=== PATIENT | female | born 1955 | race Caucasian/White ===

== ENCOUNTER 2018-04-26 19:53 | Observation (INO) ==
--- NOTE | 2018-04-26 23:40 | ED ---
HPI General Chief complaint: Skin/Abscess/Foreign Body Stated complaint: leg infections Time Seen by Provider: 04/26/18 23:31 Source: patient Mode of arrival: ambulatory Limitations: no limitations History of Present Illness HPI narrative: 62-year-old female patient presents to the ER today because she has had several months history poorly healing wounds on the legs, also has them on her body. She states that she stays in a motel room and she noticed roaches around. She states that they just have not been healing, and her wounds have been getting worse. She denies any fevers or any other issues. She is not sure how the wound starts although she has bumped her arms in some spots. Related Data Home Medications Medication Instructions Recorded Confirmed No Known Home Medications 04/26/18 04/26/18 Allergies Allergy/AdvReac Type Severity Reaction Status Date / Time No Known Allergies Allergy Verified 04/26/18 23:23 Review of Systems ROS: all other systems reviewed are negative PMFSH History History Provided By: Patient Medical History Medical History Patient denies medical problems (Acute) Surgical History Surgical History No history of previous surgery (Acute) Social History Social History Substance History: No History of Abuse Second Hand Smoke Exposure: Yes Smoking Status: Current every day smoker Tobacco Type: Cigarettes How Often Do You Have a Drink Containing Alcohol: Never Recent Travel in [facility] [[email or web address] within the Last 8 Weeks: No Recent Out of Country Travel within the Last 8 Weeks: No Exam Narrative Exam Narrative: GENERAL: Well-nourished, well-developed elderly white female patient in mild distress. Awake and oriented 3. SKIN: Focused skin assessment warm/dry. HEAD: Normocephalic. EYES: No scleral icterus. No injection or drainage. NECK: Supple, trachea midline. No JVD or lymphadenopathy. CARDIOVASCULAR: Regular rate and rhythm without murmurs, gallops, or rubs. RESPIRATORY: Breath sounds equal bilaterally. No accessory muscle use. GASTROINTESTINAL: Abdomen soft, non-tender, nondistended. EXTREMITIES: No clubbing, cyanosis. She has bilateral leg edema worse on the right than the left, erythema up to the upper calf area, with several small and large ulcers that are coalescing, draining whitish pus, tender to palpation. MUSCULOSKELETAL: No cyanosis, or edema. BACK: Nontender without obvious deformity. No CVA tenderness. Course Initial Documented Vital Signs Temperature 98.3 F 04/26/18 21:02 Pulse Rate 107 H 04/26/18 21:02 Respiratory Rate 16 04/26/18 21:02 Blood Pressure 147/65 H 04/26/18 21:02 Pulse Oximetry 98 04/26/18 21:02 Last Documented Vital Signs Temperature 98.3 F 04/26/18 21:02 Pulse Rate 92 H 04/26/18 23:53 Respiratory Rate 20 04/26/18 23:53 Blood Pressure 137/62 04/26/18 23:53 Pulse Oximetry 100 04/26/18 23:53 Medical Decision Making MDM Narrative Medical decision making narrative: Patient appears to have bilateral cellulitis , nonhealing ulcers, and IV antibiotics were initiated after cultures were drawn. I suspect that she will need further follow-up for this wounds, and wound care will need to be given as well. She appears disheveled, and there is concern here without a primary care doctor that she is not going to do well as an outpatient. Case has been discussed with Dr. Monge who agrees to admit her as an observation with plans with the patient on p.o. antibiotics and follow -up care. Medical Screen Exam Complete: Yes Emergency Medical Condition: Yes Differential Diagnosis Differential Diagnosis: Cellulitis versus abscess versus sepsis Lab Data Lab results reviewed: Yes I reviewed the patient's lab results. Result diagrams: 04/26/18 23:50 04/26/18 23:50 Lab Results 04/26/18 04/26/18 04/26/18 Range/Units 23:50 23:50 23:50 WBC 10.4 (4.0-11.0) th/mm3 RBC 4.68 (4.00-5.30) mil/mm3 Hgb 11.9 (11.6-15.3) gm/dL Hct 36.6 (35.0-46.0) % MCV 78.2 L (80.0-100.0) fL MCH 25.3 L (27.0-34.0) pg MCHC 32.4 (32.0-36.0) % RDW 16.8 (11.6-17.2) % Plt Count 543 H (150-450) th/mm3 MPV 6.4 L (7.0-11.0) fL Neut % (Auto) 68.7 (16.0-70.0) % Lymph % (Auto) 22.6 (9.0-44.0) % [place] % (Auto) 6.9 (0.0-8.0) % Eos % (Auto) 1.2 (0.0-4.0) % Baso % (Auto) 0.6 (0.0-2.0) % Neut # (Auto) 7.2 (1.8-7.7) th/mm3 Lymph # (Auto) 2.4 (1.0-4.8) th/mm3 [place] # (Auto) 0.7 (0.0-0.9) th/mm3 Eos # (Auto) 0.1 (0.0-0.4) th/mm3 Baso # (Auto) 0.1 (0.0-0.2) th/mm3 WBC Differential . Differential Comment Auto diff final Sodium 141 (136-145) meq/L Potassium 3.8 (3.5-5.1) meq/L Chloride 106 (98-107) meq/L Carbon Dioxide 26.3 (21.0-32.0) meq/L Anion Gap 9 (5-15) meq/L BUN 7 (7-18) mg/dL Creatinine 0.68 (0.50-1.00) mg/dL Estimated GFR 88 L (>89) mL/min Random Glucose 102 (74-106) mg/dL Lactic Acid 1.2 (0.4-2.0) mmol/L Calcium 8.4 L (8.5-10.1) mg/dL Discharge Plan Discharge Details Anticipated Discharge Date: 04/27/18 Physicians Team ED Provider: Tanya Choudhury Primary Care Provider: Primary Care Maggi Zepeda Rxs /Orders / Referrals /Forms Prescriptions: No Action No Known Home Medications RF: 0 Discharge Interventions Interventions: Vital Signs Last Done: 04/26/18 23:53 Status ED Status: With Doctor
[2018-04-27 00:03] LABS: Baso # (Auto) 0.1 th/mm3 (0.0-0.2); Baso % (Auto) 0.6 % (0.0-2.0); Eos # (Auto) 0.1 th/mm3 (0.0-0.4); Eos % (Auto) 1.2 % (0.0-4.0); Hematocrit 36.6 % (35.0-46.0); Hemoglobin 11.9 gm/dL (11.6-15.3); Lymph # (Auto) 2.4 th/mm3 (1.0-4.8); Lymph % (Auto) 22.6 % (9.0-44.0); Mean Corpuscular HGB Conc 32.4 % (32.0-36.0); Mean Corpuscular Hemoglobin 25.3 pg (27.0-34.0); Mean Corpuscular Volume 78.2 fL (80.0-100.0); Mean Platelet Volume 6.4 fL (7.0-11.0); Mono # (Auto) 0.7 th/mm3 (0.0-0.9); Mono % (Auto) 6.9 % (0.0-8.0); Neut # (Auto) 7.2 th/mm3 (1.8-7.7); Neut % (Auto) 68.7 % (16.0-70.0); Platelet Count 543 th/mm3 (150-450); Red Blood Count 4.68 mil/mm3 (4.00-5.30); Red Cell Distribution Width 16.8 % (11.6-17.2); White Blood Count 10.4 th/mm3 (4.0-11.0)
[2018-04-27 00:20] LABS: Calcium 8.4 mg/dL (8.5-10.1); Carbon Dioxide 26.3 meq/L (21.0-32.0); Potassium 3.8 meq/L (3.5-5.1)
[2018-04-27] MEDS ORDERED: Piperacil/Tazo 3.375 GM Premix 50 ML IV.SIG ONE (00:27)
[2018-04-27] MEDS ORDERED: Acetaminophen 325 MG Tablet PO PRN ×2 (01:57→12:26)
[2018-04-27] MEDS ORDERED: Bisacodyl 10 MG Supp RECTAL PRN (01:57)
[2018-04-27] MEDS ORDERED: Heparin - SQ 10,000 UNITS/ML Vial SQ SCH (02:00)
--- NOTE | 2018-04-27 02:46 | P.HP ---
History of Present Illness [facility]: [facility] Primary Care Physician: No Primary Care Physician History of Present Illness: 62-year-old female with no significant past medical history presents to the emergency department for evaluation of bilateral lower extremity wounds. The patient reports that she has had worsening sores on her lower extremities for several weeks. She states that initially she had what she thought was a spider bite that she then scratched and since has developed multiple other sores on both legs. They are not draining. She denies any fever/chills. She reports the sores are itchy and cannot prevent herself from scratching. The patient denies any chest pain or shortness of breath. No abdominal pain. No nausea/ vomiting/diarrhea. No lateralizing signs/symptoms. Of note, the patient has not been to a physician in years. She reports that she currently just moved out of a temporary stay hotel. Review of Systems All other systems reviewed negative except as stated [facility] - History History Provided By: Patient - Medical History Medical History: Medical History (Last Reviewed 04/26/18 @ 23:37 by Tanya Choudhury MD) Patient denies medical problems - Surgical History Surgical History: Surgical History (Last Reviewed 04/26/18 @ 23:37 by Tanya Choudhury MD) No history of previous surgery - Family History Family History: Family History (Last Updated 04/27/18 @ 02:38 by Dionne Monge MD) Other Family history normal - Tobacco History Second Hand Smoke Exposure: Yes Tobacco Use In Past 30 Days: Yes Smoking Status: Current every day smoker Tobacco Type: Cigarettes - Alcohol History How Often Do You Have a Drink Containing Alcohol: Never - Substance Use History Substance History: No History of Abuse - Travel History Recent Travel in the [place] Within the Last 8 Weeks: No Recent Travel Out of the Country Within the Last 8 Weeks: No - Immunization History Tetanus Immunization: >5 Years Hx Influenza Vaccine This Season: No Medications and Allergies Active Medications: Active Medications Acetaminophen (Tylenol) 650 mg PO Q4H PRN PRN Reason: Temp > 100.4 Al Hydroxide/Mg Hydroxide (Milk Of Magnesia Liq) 30 ml PO Q12H PRN PRN Reason: Mild Constipation Bisacodyl (Dulcolax Supp) 10 mg RECTAL DAILY PRN PRN Reason: SEVERE CONSITIPATION Heparin Sodium (Porcine) (Heparin Inj) 5,[address] [facility] Clindamycin/Sodium Chloride (Cleocin 900 Mg/Ns Premix) 900 mg in 50 mls @ 100 mls/hr IV.SIG Q8H [facility] Lactulose (Lactulose Liq) 30 ml PO DAILY PRN PRN Reason: SEVERE CONSITIPATION Ondansetron HCl (Zofran Inj) 4 mg IV.PUSH Q6H PRN PRN Reason: NAUSEA OR VOMITING Senna/Docusate Sodium (Lily-Colace) [address] [facility] Sennosides (Senokot) 17.2 mg PO Q12H PRN PRN Reason: Moderate Constipation Allergies Allergy/AdvReac Type Severity Reaction Status Date / Time No Known Allergies Allergy Verified 04/26/18 23:23 Home Medications Medication Instructions Recorded Confirmed Type No Known Home Medications 04/26/18 04/26/18 History Exam Vital signs: Vital Signs 04/26/18 21:02 04/26/18 23:53 Temperature 98.3 F Pulse Rate 107 H 92 H Respiratory Rate 16 20 Blood Pressure 147/65 H 137/62 Pulse Oximetry 98 100 Intake & Output 04/26/18 04/26/18 04/27/18 06:59 18:59 06:59 Intake Total 50 / 50 Balance 50 / 50 Weight 86 kg Intake: IV 50 / 50 Zosyn 3.375 GM Premix 50 ML @ 50 / 50 100 mls/hr IV.SIG ONCE ONE Rx#: [id number] Narrative: Gen.: No acute distress Head: Normocephalic. Atraumatic. EENT: Pupils equal round and reactive to light. Nose without drainage. Airway intact. Throat without injection. Cardiovascular: Regular rate and rhythm. No murmurs, rubs or gallops. Respiratory: Lungs clear to auscultation bilaterally. No wheezes or rhonchi. Abdomen: Soft, nontender, nondistended. No peritoneal signs. Musculoskeletal: No gross deformities. No edema. Skin: Multiple superficial wounds without drainage on the bilateral lower extremities. Surrounding erythema. No induration or fluctuance. Neuro: Sensory and motor grossly intact. Cranial nerves II through XII grossly intact. Results - Labs CBC & Chem 7: 04/26/18 23:50 04/26/18 23:50 Labs: Laboratory Results - last 24 hr 04/26/18 04/26/18 04/26/18 23:50 23:50 23:50 WBC 10.4 RBC 4.68 Hgb 11.9 Hct 36.6 MCV 78.2 L MCH 25.3 L MCHC 32.4 RDW 16.8 Plt Count 543 H MPV 6.4 L Neut % (Auto) 68.7 Lymph % (Auto) 22.6 [place] % (Auto) 6.9 Eos % (Auto) 1.2 Baso % (Auto) 0.6 Neut # (Auto) 7.2 Lymph # (Auto) 2.4 [place] # (Auto) 0.7 Eos # (Auto) 0.1 Baso # (Auto) 0.1 WBC Differential . Differential Comment Auto diff final Sodium 141 Potassium 3.8 Chloride 106 Carbon Dioxide 26.3 Anion Gap 9 BUN 7 Creatinine 0.68 Estimated GFR 88 L Random Glucose 102 Lactic Acid 1.2 Calcium 8.4 L Caprini VTE Risk Assessment Caprini VTE Risk Assessment: Moderate/High Risk (score >= 2) Caprini Risk Assessment Model: Point Value = 1 Point Value = 2 Point Value = 3 Point Value = 5 Age 41-60 Minor surgery BMI > 25 kg/m2 Swollen legs Varicose veins or History of unexplained or recurrent spontaneous Oral contraceptives or hormone replacement Sepsis (< 1 month) Serious lung disease, including pneumonia (< 1 month) Abnormal pulmonary function Acute myocardial infarction Congestive heart failure (< 1 month) History of inflammatory bowel disease Medical patient at bed rest Age 61-74 Arthroscopic surgery Major open surgery (> 45 min) Laparoscopic surgery (> 45 min) Malignancy Confined to bed (> 72 hours) Immobilizing plaster cast Central venous access Age >= 75 History of VTE Family history of VTE Factor V Leiden Prothrombin [id number] Lupus anticoagulant Anticardiolipin antibodies Elevated serum homocysteine Heparin-induced thrombocytopenia Other congenital or acquired thrombophilia Stroke (< 1 month) Elective arthroplasty Hip, pelvis, or leg fracture Acute spinal cord injury (< 1 month) Prophylaxis Regimen: Total Risk Factor Score Risk Level Prophylaxis Regimen 0-1 Low Early ambulation 2 Moderate Order ONE of the following: *Sequential Compression Device (SCD) *Heparin 5000 units SQ BID 3-4 Higher Order ONE of the following medications: *Heparin 5000 units SQ TID *Enoxaparin/Lovenox 40 mg SQ daily (WT < 150 kg, CrCl > 30 mL/min) *Enoxaparin/Lovenox 30 mg SQ daily (WT < 150 kg, CrCl > 10-29 mL/min) *Enoxaparin/Lovenox 30 mg SQ BID (WT < 150 kg, CrCl > 30 mL/min) AND/OR *Sequential Compression Device (SCD) 5 or more Highest Order ONE of the following medications: *Heparin 5000 units SQ TID (Preferred with Epidurals) *Enoxaparin/Lovenox 40 mg SQ daily (WT < 150 kg, CrCl > 30 mL/min) *Enoxaparin/Lovenox 30 mg SQ daily (WT < 150 kg, CrCl > 10-29 mL/min) *Enoxaparin/Lovenox 30 mg SQ BID (WT < 150 kg, CrCl > 30 mL/min) AND *Sequential Compression Device (SCD) Assessment and Plan - Plan Assessment/plan: 1. Bilateral lower extremity wounds Clindamycin Wound care consulted, appreciate assistance Anticipate discharge on oral antibiotics later today FEN Regular diet Electrolytes: Monitor and replete as needed Heparin
[2018-04-27] MEDS: Clindamycin 900 mg/NS Premix 900 MG/50 ML PIGGYBACK IV.SIG SCH ×3 (02:53→18:50)
[2018-04-27] MEDS: Heparin - SQ 10,000 UNITS/ML Vial SQ SCH ×3 (06:42→21:15)
[2018-04-27] MEDS: Senna/Docusate Sodium 8.6/50 MG Tablet PO SCH ×2 (10:11→21:15)
--- NOTE | 2018-04-27 10:32 | P.PNIM ---
Subjective Interval history: Patient complains of mild pain of both of her shins. Physical Exam Vital signs: Vital Signs 04/26/18 21:02 04/26/18 23:53 04/27/18 04:25 Temperature 98.3 F Pulse Rate 107 H 92 H 88 Respiratory Rate 16 20 16 Blood Pressure 147/65 H 137/62 137/63 Pulse Oximetry 98 100 98 04/27/18 07:51 Temperature 97.6 F Pulse Rate 76 Respiratory Rate 16 Blood Pressure 110/53 L Pulse Oximetry 96 Intake & Output 04/26/18 04/27/18 04/27/18 18:59 06:59 18:59 Intake Total 100 / 100 240 / 240 Balance 100 / 100 240 / 240 Weight 86 kg 86 kg Intake: IV 100 / 100 Cleocin 900 mg/NS Premix 900 mg 50 / 50 In 50 ml @ 100 mls/hr IV.SIG Q8H [facility] Rx#:[id number] Zosyn 3.375 GM Premix 50 ML @ 50 / 50 100 mls/hr IV.SIG ONCE ONE Rx#: [id number] Oral 240 / 240 Other: Date of Last Bowel Movement 04/27/18 Weight On Admission 86 kg Narrative: General patient in no acute distress HEENT extraocular movements are intact, poor dentition Cardiovascular S1-S2 audible, RRR, no murmurs rubs or gallops Respiratory clear to auscultation bilaterally Abdomen soft, nontender, nondistended, normal bowel sounds Extremities bilateral lower extremities from the ankles to the mid [place] wrapped in gauze. Multiple open wounds noted on bilateral shins as well as bilateral forearms and left elbow. No drainage noted from the wounds. Neuro cranial nerves II through XII intact Results - Labs CBC & Chem 7: 04/26/18 23:50 04/26/18 23:50 Laboratory Results - last 24 hr 04/26/18 04/26/18 04/26/18 23:50 23:50 23:50 WBC 10.4 RBC 4.68 Hgb 11.9 Hct 36.6 MCV 78.2 L MCH 25.3 L MCHC 32.4 RDW 16.8 Plt Count 543 H MPV 6.4 L Neut % (Auto) 68.7 Lymph % (Auto) 22.6 [place] % (Auto) 6.9 Eos % (Auto) 1.2 Baso % (Auto) 0.6 Neut # (Auto) 7.2 Lymph # (Auto) 2.4 [place] # (Auto) 0.7 Eos # (Auto) 0.1 Baso # (Auto) 0.1 WBC Differential . Differential Comment Auto diff final Sodium 141 Potassium 3.8 Chloride 106 Carbon Dioxide 26.3 Anion Gap 9 BUN 7 Creatinine 0.68 Estimated GFR 88 L Random Glucose 102 Lactic Acid 1.2 Calcium 8.4 L Assessment and Plan - Plan This patient is a 62-year-old female with no previous known medical history. She is currently homeless and living in motels. She has had chronic wounds of bilateral lower extremities from the ankles up up to the shins that has been ongoing for the past few months. She states that she believes she had a spider bite on both of her lower extremities and ended up scratching them which became infected. 1. Cellulitis of bilateral lower extremities The patient has erythema pain and swelling of bilateral lower extremities from the ankles up to the shins. She is currently on IV fluids and IV antibiotics. She does have complaints of pain of bilateral lower extremities, will be initiated for pain control. She will will require IV antibiotics and will be reassessed tomorrow.
[2018-04-28] MEDS: Clindamycin 900 mg/NS Premix 900 MG/50 ML PIGGYBACK IV.SIG SCH ×2 (02:40→15:35)
[2018-04-28] MEDS: Heparin - SQ 10,000 UNITS/ML Vial SQ SCH ×2 (06:00→15:36)
[2018-04-28 07:23] LABS: Baso # (Auto) 0.1 th/mm3 (0.0-0.2); Baso % (Auto) 0.7 % (0.0-2.0); Eos # (Auto) 0.2 th/mm3 (0.0-0.4); Eos % (Auto) 2.9 % (0.0-4.0); Hematocrit 34.3 % (35.0-46.0); Hemoglobin 11.1 gm/dL (11.6-15.3); Lymph # (Auto) 2.3 th/mm3 (1.0-4.8); Lymph % (Auto) 30.4 % (9.0-44.0); Mean Corpuscular HGB Conc 32.4 % (32.0-36.0); Mean Corpuscular Hemoglobin 25.2 pg (27.0-34.0); Mean Corpuscular Volume 77.6 fL (80.0-100.0); Mean Platelet Volume 6.6 fL (7.0-11.0); Mono # (Auto) 0.7 th/mm3 (0.0-0.9); Mono % (Auto) 8.7 % (0.0-8.0); Neut # (Auto) 4.4 th/mm3 (1.8-7.7); Neut % (Auto) 57.3 % (16.0-70.0); Platelet Count 493 th/mm3 (150-450); Red Blood Count 4.42 mil/mm3 (4.00-5.30); Red Cell Distribution Width 16.8 % (11.6-17.2); White Blood Count 7.7 th/mm3 (4.0-11.0)
[2018-04-28 07:58] LABS: Anion Gap 7 meq/L (5-15); Blood Urea Nitrogen 8 mg/dL (7-18); Calcium 8.6 mg/dL (8.5-10.1); Carbon Dioxide 28.3 meq/L (21.0-32.0); Chloride 108 meq/L (98-107); Glomerular Filtration Rate Greater Than 89 mL/min (>89); Glucose,Random 93 mg/dL (74-106); Potassium 4.4 meq/L (3.5-5.1); Sodium 143 meq/L (136-145)
[2018-04-28] MEDS: Senna/Docusate Sodium 8.6/50 MG Tablet PO SCH (07:59)
--- NOTE | 2018-04-28 11:10 | P.PNIM ---
Subjective Interval history: Patient does not have any current complaints. Physical Exam Vital signs: Vital Signs 04/27/18 12:24 04/27/18 15:21 04/27/18 20:00 Temperature 98.2 F 98.3 F 98.4 F Pulse Rate 83 94 H 95 H Respiratory Rate 16 18 17 Blood Pressure 135/69 121/54 L 123/72 Pulse Oximetry 100 96 97 04/27/18 23:23 04/28/18 00:00 04/28/18 04:00 Temperature 98.4 F 98.5 F 98.1 F Pulse Rate 80 95 H 80 Respiratory Rate 16 19 19 Blood Pressure 123/72 109/53 L 129/73 Pulse Oximetry 97 97 04/28/18 07:43 Temperature 97.5 F L Pulse Rate 82 Respiratory Rate 18 Blood Pressure 128/67 Pulse Oximetry 100 Intake & Output 04/27/18 04/28/18 04/28/18 18:59 06:59 18:59 Intake Total 290 / 290 230 / 230 Output Total Balance 290 / 290 229 / 229 Weight 86 kg 90.718 kg Intake: IV 50 / 50 100 / 100 Cleocin 900 mg/NS Premix 900 mg 50 / 50 100 / 100 In 50 ml @ 100 mls/hr IV.SIG Q8H [facility] Rx#:[id number] Oral 240 / 240 130 / 130 Output: Urine Other: Date of Last Bowel Movement 04/27/18 Weight On Admission 86 kg Narrative: General patient in no acute distress HEENT extraocular movements are intact, clear oropharyngeal mucosa, no JVD Cardiovascular S1-S2 audible, RRR, no murmurs rubs or gallops Respiratory clear to auscultation bilaterally Abdomen soft, nontender, nondistended, normal bowel sounds Extremities multiple wounds and ulcerations of bilateral lower from the ankles up to the shins. Mild soaked through on the bandages. 2+ distal pulses of the bilateral lower extremities Neuro cranial nerves II through XII intact Results - Labs CBC & Chem 7: 04/28/18 06:55 04/28/18 06:55 Laboratory Results - last 24 hr 04/28/18 04/28/18 06:55 06:55 WBC 7.7 RBC 4.42 Hgb 11.1 L Hct 34.3 L MCV 77.6 L MCH 25.2 L MCHC 32.4 RDW 16.8 Plt Count 493 H MPV 6.6 L Neut % (Auto) 57.3 Lymph % (Auto) 30.4 [place] % (Auto) 8.7 H Eos % (Auto) 2.9 Baso % (Auto) 0.7 Neut # (Auto) 4.4 Lymph # (Auto) 2.3 [place] # (Auto) 0.7 Eos # (Auto) 0.2 Baso # (Auto) 0.1 WBC Differential . Differential Comment Auto diff final Sodium 143 Potassium 4.4 Chloride 108 H Carbon Dioxide 28.3 Anion Gap 7 BUN 8 Creatinine 0.61 Estimated GFR Greater than 89 Random Glucose 93 Calcium 8.6 Microbiology 04/26/18 23:45 Blood - Peripheral Aerobic Blood Culture - Preliminary No growth in 2 days 04/26/18 23:45 Blood - Peripheral Anaerobic Blood Culture - Preliminary No growth in 2 days 04/26/18 23:50 Blood - Peripheral Aerobic Blood Culture - Preliminary No growth in 2 days 04/26/18 23:50 Blood - Peripheral Anaerobic Blood Culture - Preliminary No growth in 2 days Assessment and Plan - Plan This patient is a 62-year-old female with no previous known medical history. [facility] She has had chronic wounds of bilateral lower extremities from the ankles up up to the shins that has been ongoing for the past few months. She states that she believes she had a spider bite on both of her lower extremities and ended up scratching them which became infected. 1. Cellulitis of bilateral lower extremities The patient initially presented with pain erythema and swelling of bilateral lower extremities. She has a multiple wounds of bilateral lower extremities from the ankles up to the shins with drainage of the wounds. She also has wounds of bilateral upper extremities elbows as per the patient she does not use any IV drugs. She has received 2 days of IV antibiotics while in the hospital. She will be discharged on 5 more days of p.o. clindamycin. She was advised to follow-up with a primary care physician within 1 week.
--- NOTE | 2018-04-28 15:34 | P.PNWCN ---
Wound Care Nurse Consult Description: Wound consult ordered by Tammi MCMAHAN for wound management. Communicated with: Melina KEVIN, Recommendation: 1. Cleanse bilateral lower extremities with warm water and Hibiclens rinse pat dry. 2. Apply Maxorb ll cut to fit to open wounds.Cover with ABDs secure with rolled gauze/KENIA wrap. 3. Change dressings every 3 days or as needed for dislodgement/exudate management.sign and date all dressings. 4. Follow up with out patient wound center. Additional information: Patient was seen today by filing writer , Melody Harris for wound management of bilateral lower extremities.Radio Time Sales Supervisor requested that Melina RN accompany filing writer into patient room for assistance.Melina stated she didn't have time.[employer] Time Sales Supervisor had reached out to coworker for assistance.Patient alert and oriented sitting up win bed with very soiled dressings on bilateral lower extremities .[employer] Time Sales Supervisor removed dressings with some difficulty.Lower extremities found to be covered in exudate and dirt.[employer] Time Sales Supervisor assisted patient with Hibiclens bed bath prior to wound assessment.Patient noted to have diffuse partial thickness wounds to bilateral lower extremities that present like sores being "picked at" patient states she does itch and pick sores at night.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 Distal right lower extremity [place] area measures 2.5cm x3.0cm x 0.3cm wound base is 100% moist red non granular tissue.Wound edges are well defined sloped with wound base. scant serosanguineous exudate with out odor.LLE posterior gaiter area has a ~8.0cm x~ 6.0cm x dry exudate.Wound edges are well defined irregular in shape.serous exudate noted with cleansing.All wounds cleansed with normal saline pat dry Maxorb ll cut to fit wound bases applied and covered with ABD dressings secured with rolled gauze /KENIA wrap care package left with patient .No further questions or concerns upon writers departure. Wound/Pressure Injury - Wound Left Lower Leg Wound Assessment: Ongoing Wound Type: Contusion Is This a Chronic Wound: No Requested from Provider a Wound Care Consult: No (LINDA Bucio seen 04/28) Wound Bed Appearance: Red Surrounding Tissue Appearance: Bright Red Surrounding Tissue Temperature: Warm Drainage Description: Serous Drainage Amount: Scant Drainage Odor: No Odor Dressing Status: Changed Cleansing Solution: Saline Wound Packing Type: Alginate Primary Dressing: Absorbant Pad Cover Dressing: Non-Adherent Gauze Pads Tape Type: Paper Wound Dressing Change Date: 04/28/18 Right Lower Leg Wound Assessment: Ongoing Wound Type: Contusion Is This a Chronic Wound: No Requested from Provider a Wound Care Consult: No (Adrianna KEVIN,[facility] ) Wound Bed Appearance: Red Surrounding Tissue Appearance: Bright Red Surrounding Tissue Temperature: Warm Drainage Description: Serosanguinous Drainage Amount: Minimal Drainage Odor: No Odor Dressing Status: Changed Cleansing Solution: Saline Wound Packing Type: Alginate Primary Dressing: Absorbant Pad Cover Dressing: Gauze Roll/Wrap Tape Type: Paper Wound Dressing Change Date: 04/28/18
== END 2018-04-28 17:45 | disposition home or self-care (01) ==
LOC: NEDA 19:53 → NEPE 19:53 → NEDH 04-27 06:43 → NEPHCDU 04-27 08:18
PROVIDERS: ADMIT Hospitalist; ATTEND Hospitalist

== ENCOUNTER 2018-06-01 13:56 | Inpatient (IN) ==
[2018-06-01 19:03] LABS: Baso % (Auto) 0.3 % (0.0-2.0); Eos # (Auto) 0.1 th/mm3 (0.0-0.4); Eos % (Auto) 0.7 % (0.0-4.0); Hematocrit 32.5 % (35.0-46.0); Hemoglobin 10.5 gm/dL (11.6-15.3); Lymph # (Auto) 2.5 th/mm3 (1.0-4.8); Lymph % (Auto) 17.6 % (9.0-44.0); Mean Corpuscular HGB Conc 32.2 % (32.0-36.0); Mean Corpuscular Hemoglobin 24.7 pg (27.0-34.0); Mean Corpuscular Volume 76.7 fL (80.0-100.0); Mean Platelet Volume 6.9 fL (7.0-11.0); Mono % (Auto) 6.8 % (0.0-8.0); Neut # (Auto) 10.7 th/mm3 (1.8-7.7); Neut % (Auto) 74.6 % (16.0-70.0); Platelet Count 538 th/mm3 (150-450); Red Blood Count 4.24 mil/mm3 (4.00-5.30); Red Cell Distribution Width 18.5 % (11.6-17.2); White Blood Count 14.4 th/mm3 (4.0-11.0)
[2018-06-01] MEDS ORDERED: Clindamycin 900 mg/NS Premix 900 MG/50 ML PIGGYBACK IV.SIG ONE (19:05)
--- NOTE | 2018-06-01 19:05 | ED ---
HPI General Chief complaint: Skin/Abscess/Foreign Body Stated complaint: Skin Sores Time Seen by Provider: 06/01/18 17:51 Source: patient Mode of arrival: ambulatory Limitations: no limitations History of Present Illness HPI narrative: 63-year-old female presents to the emergency department for evaluation of wounds to the bilateral lower extremities. She says she has "new bites" to the left lower extremity, lateral calf that is been present for 3-4 days. She states that her right leg seems swollen as well. She states that she is not homeless however, states she states in different hotels throughout the week. She says that she was discharged from [facility] last month with antibiotics and states that she was compliant with this medication. Patient states she has been changing her bandages daily however, does not appear so on exam today. She denies fever, chills, nausea, vomiting. Patient states she has had diarrhea, 2-3 nonbloody episodes for 1 week. She denies chronic medical issues or medication use. She denies use of alcohol or illicit drugs. She does smoke tobacco. Related Data Home Medications Medication Instructions Recorded Confirmed No Known Home Medications 04/26/18 06/01/18 Allergies Allergy/AdvReac Type Severity Reaction Status Date / Time No Known Allergies Allergy Verified 06/01/18 18:42 Review of Systems ROS: all other systems reviewed are negative [facility] Medical History Medical History Patient denies medical problems (Acute) Social History Social History Substance History: No History of Abuse Second Hand Smoke Exposure: Yes Smoking Status: Current every day smoker Tobacco Type: Cigarettes How Often Do You Have a Drink Containing Alcohol: Never Recent Travel in [facility] within the Last 8 Weeks: No Recent Out of Country Travel within the Last 8 Weeks: No Immunization History Tetanus Immunization: >5 Years Exam Narrative Exam Narrative: GENERAL: Well-developed, well-nourished in no apparent distress SKIN: Focused skin assessment warm/dry. HEAD: Atraumatic. Normocephalic. EYES: Pupils equal and round. No scleral icterus. No injection or drainage. ENT: No nasal bleeding or discharge. Mucous membranes pink and moist. NECK: Trachea midline. No JVD. CARDIOVASCULAR: Regular rate and rhythm. No murmur appreciated. RESPIRATORY: No accessory muscle use. Clear to auscultation. Breath sounds equal bilaterally. GASTROINTESTINAL: Abdomen soft, non-tender, nondistended. Hepatic and splenic margins not palpable. MUSCULOSKELETAL: No obvious deformities. No clubbing. No cyanosis. No edema. Left lower extremity-ulcerations present to the anterior [place] approximately 4-5 cm, macerated with serosanguineous fluid. Small superficial ulcers present surrounding the area Right lower extremity-multiple, small 1-2 cm superficial round ulcerations present on left lower extremities. NEUROLOGICAL: Awake and alert. No obvious cranial nerve deficits. Motor grossly within normal limits. Normal speech. PSYCHIATRIC: Appropriate mood and affect; insight and judgment normal. Course Initial Documented Vital Signs Temperature 98.5 F 06/01/18 14:13 Pulse Rate 117 H 06/01/18 14:13 Blood Pressure 136/64 06/01/18 14:13 Pulse Oximetry 100 06/01/18 14:13 Last Documented Vital Signs Temperature 98.3 F 06/01/18 23:50 Pulse Rate 90 06/01/18 23:50 Respiratory Rate 18 06/01/18 23:50 Blood Pressure 129/59 L 06/01/18 23:50 Pulse Oximetry 99 06/01/18 23:50 Medical Decision Making MDM Narrative Medical decision making narrative: 63-year-old female with a history of chronic bilateral lower cellulitis and ulcerations presents to the emergency department for worsening of ulcerations and new lesions forming the lateral aspect of her left calf. Patient says she has not followed up with a active directory specialist since her discharge. She denies constitutional symptoms such as fever, chills, nausea, vomiting. Says she has had 2-3 nonbloody, loose stools daily for approximately 1 week. She otherwise has no complaints. Labs ordered for evaluation demonstrates leukocytosis at 14.4. Wound culture obtained. Clindamycin administered as this was the last antibiotic administered in the ED. Pt should be admitted for SIRS, bilateral lower extremity cellulitis and ulcerations. Spoke with Dr. Parker who agreed to the admission. Medical Screen Exam Complete: Yes Emergency Medical Condition: Yes Differential Diagnosis Differential Diagnosis: Bilateral lower extremity cellulitis, erysipelas, necrotizing fasciitis Medical Records Medical records reviewed: Yes I reviewed the patient's medical records. Patient was in the emergency department 04/27/2018 for bilateral lower extremity cellulitis. Patient was admitted and administered clindamycin. At discharge, patient was given 5 days of oral clindamycin and advised to follow-up with wound care. Patient went to wound care April 28, 2018 where they redressed the wound. Patient has not followed up since then. Lab Data Result diagrams: 06/01/18 18:33 06/01/18 18:33 Lab Results 06/01/18 06/01/18 06/01/18 Range/Units 18:33 18:33 18:33 WBC 14.4 H (4.0-11.0) th/mm3 RBC 4.24 (4.00-5.30) mil/mm3 Hgb 10.5 L (11.6-15.3) gm/dL Hct 32.5 L (35.0-46.0) % MCV 76.7 L (80.0-100.0) fL MCH 24.7 L (27.0-34.0) pg MCHC 32.2 (32.0-36.0) % RDW 18.5 H (11.6-17.2) % Plt Count 538 H (150-450) th/mm3 MPV 6.9 L (7.0-11.0) fL Neut % (Auto) 74.6 H (16.0-70.0) % Lymph % (Auto) 17.6 (9.0-44.0) % [place] % (Auto) 6.8 (0.0-8.0) % Eos % (Auto) 0.7 (0.0-4.0) % Baso % (Auto) 0.3 (0.0-2.0) % Neut # (Auto) 10.7 H (1.8-7.7) th/mm3 Lymph # (Auto) 2.5 (1.0-4.8) th/mm3 [place] # (Auto) 1.0 H (0.0-0.9) th/mm3 Eos # (Auto) 0.1 (0.0-0.4) th/mm3 Baso # (Auto) 0.0 (0.0-0.2) th/mm3 WBC Differential . Differential Comment Auto diff final PT 10.6 (9.8-11.6) sec INR 1.0 Ratio APTT 26.6 (24.3-30.1) sec Sodium 142 (136-145) meq/L Potassium 3.3 L (3.5-5.1) meq/L Chloride 106 (98-107) meq/L Carbon Dioxide 28.4 (21.0-32.0) meq/L Anion Gap 8 (5-15) meq/L BUN 6 L (7-18) mg/dL Creatinine 0.80 (0.50-1.00) mg/dL Estimated GFR 73 L (>89) mL/min Random Glucose 104 (74-106) mg/dL Lactic Acid (0.4-2.0) mmol/L Calcium 8.0 L (8.5-10.1) mg/dL Total Bilirubin 0.3 (0.2-1.0) mg/dL AST 12 L (15-37) U/L ALT 13 (10-53) U/L Alkaline Phosphatase 94 (45-117) U/L Total Protein 6.5 (6.4-8.2) g/dL Albumin 2.2 L (3.4-5.0) g/dL 06/01/18 Range/Units 20:15 WBC (4.0-11.0) th/mm3 RBC (4.00-5.30) mil/mm3 Hgb (11.6-15.3) gm/dL Hct (35.0-46.0) % MCV (80.0-100.0) fL MCH (27.0-34.0) pg MCHC (32.0-36.0) % RDW (11.6-17.2) % Plt Count (150-450) th/mm3 MPV (7.0-11.0) fL Neut % (Auto) (16.0-70.0) % Lymph % (Auto) (9.0-44.0) % [place] % (Auto) (0.0-8.0) % Eos % (Auto) (0.0-4.0) % Baso % (Auto) (0.0-2.0) % Neut # (Auto) (1.8-7.7) th/mm3 Lymph # (Auto) (1.0-4.8) th/mm3 [place] # (Auto) (0.0-0.9) th/mm3 Eos # (Auto) (0.0-0.4) th/mm3 Baso # (Auto) (0.0-0.2) th/mm3 WBC Differential Differential Comment PT (9.8-11.6) sec INR Ratio APTT (24.3-30.1) sec Sodium (136-145) meq/L Potassium (3.5-5.1) meq/L Chloride (98-107) meq/L Carbon Dioxide (21.0-32.0) meq/L Anion Gap (5-15) meq/L BUN (7-18) mg/dL Creatinine (0.50-1.00) mg/dL Estimated GFR (>89) mL/min Random Glucose (74-106) mg/dL Lactic Acid 1.4 (0.4-2.0) mmol/L Calcium (8.5-10.1) mg/dL Total Bilirubin (0.2-1.0) mg/dL AST (15-37) U/L ALT (10-53) U/L Alkaline Phosphatase (45-117) U/L Total Protein (6.4-8.2) g/dL Albumin (3.4-5.0) g/dL Imaging Data Radiologist's impression: Tibia/Fibula X-Ray 06/01/18 18:56 CONCLUSION: No acute bony findings Tibia/Fibula X-Ray 06/01/18 18:56 CONCLUSION: No acute bony findings Discharge Plan Discharge Disposition Patient Disposition: 30 Still Patient Discharge Condition Condition: Stable Discharge Details Diagnosis: Cellulitis, Lower extremity ulceration, Leukocytosis, History of thrombocytosis Physicians Team ED Provider: Tate Caruso ED Midlevel Provider: Tracy Gusman Primary Care Provider: Primary Care Maggi Zepeda Attending Provider: Zenia Parker Status ED Status: Left Department Discharge Information Discharge Date/Time: 06/01/18 21:08
[2018-06-01 19:07] LABS: Activated Partial Thrombo Time 26.6 sec (24.3-30.1); Prothrombin Time 10.6 sec (9.8-11.6)
[2018-06-01 19:33] LABS: Albumin 2.2 g/dL (3.4-5.0); Anion Gap 8 meq/L (5-15); Aspartate Aminotransferase 12 U/L (15-37); Blood Urea Nitrogen 6 mg/dL (7-18); Carbon Dioxide 28.4 meq/L (21.0-32.0); Chloride 106 meq/L (98-107); Glomerular Filtration Rate 73 mL/min (>89); Glucose,Random 104 mg/dL (74-106); Potassium 3.3 meq/L (3.5-5.1); Sodium 142 meq/L (136-145)
[2018-06-01 19:34] LABS: Alanine Aminotransferase 13 U/L (10-53)
--- NOTE | 2018-06-01 19:34 | XR ---
EXAM DATE: 06/01/2018 6:56 PM EDT AGE/SEX: 63 years / Female INDICATIONS: Right lower leg inflammation and infection. CLINICAL DATA: This is the patient's initial encounter. Patient reports that signs and symptoms have been present for > 1 year and indicates a pain score of 8/10. MEDICAL/SURGICAL HISTORY: None. None. COMPARISON: No prior exams available for comparison. FINDINGS: Bony structures are intact and in normal alignment. Osseous density is normal. Moderate diffuse soft tissue swelling. No radiopaque foreign bodies seen. CONCLUSION: No acute bony findings Electronically signed by: Tristan Norman MD 06/01/2018 7:33 PM EDT
[2018-06-01 19:36] LABS: Alkaline Phosphatase 94 U/L (45-117); Total Protein 6.5 g/dL (6.4-8.2)
[2018-06-01] MEDS ORDERED: Acetaminophen 325 MG Tablet PO PRN (20:02)
[2018-06-01] MEDS ORDERED: Bisacodyl 10 MG Supp RECTAL PRN (20:02)
--- NOTE | 2018-06-01 20:04 | P.HPIM ---
History of Present Illness Primary Care Physician: No Primary Care Physician History of Present Illness: Is a 63-year-old female with a PMH of Recurrent Lower Extremity Ulcers who presented to ER with complaints of worsening lower extremity wounds bilaterally. Previous admit 04/27/2018 for similar complaints, s/p IV Abx and d/c 'd on Clinda PO, reports compliance w/ antibiotics. States lesions had improved while on antibiotics, however now worse over the last 1wk. Denies fever or chills. On arrival, BP 136/64, HR 117, O2 sat 100% on RA, Afebrile. WBC 14.4. INR 1.0. Chemistry essentially unremarkable. Tib-fib X-ray bilaterally negative for acute findings. S/p Clinda IV in ER. - Diagnosis (1) Cellulitis Review of Systems PAST FAMILY HISTORY: Reviewed. No h/o DM or CAD All other systems reviewed negative except as stated in HPI [facility] - History History Provided By: Patient - Medical History Medical History: Medical History (Last Reviewed 06/01/18 @ 19:02 by MARTIR Dunlap) Patient denies medical problems - Surgical History Surgical History: Surgical History (Last Reviewed 06/01/18 @ 18:40 by Theodora Ruth RN) No history of previous surgery - Family History Family History: Family History (Last Reviewed 04/27/18 @ 08:58 by Hillary Navarrete RN) Other Family history normal - Tobacco History Second Hand Smoke Exposure: Yes Tobacco Use In Past 30 Days: Yes Smoking Status: Current every day smoker Tobacco Type: Cigarettes - Alcohol History How Often Do You Have a Drink Containing Alcohol: Never - Substance Use History Substance History: No History of Abuse - Travel History Recent Travel in the [facility] Within the Last 8 Weeks: No Recent Travel Out of the Country Within the Last 8 Weeks: No - Immunization History Tetanus Immunization: >5 Years Medications and Allergies Active Medications: Active Medications Acetaminophen (Tylenol) 650 mg PO Q4H PRN PRN Reason: Temp > 100.4 Allergies Allergy/AdvReac Type Severity Reaction Status Date / Time No Known Allergies Allergy Verified 06/01/18 18:42 Home Medications Medication Instructions Recorded Confirmed Type No Known Home Medications 04/26/18 06/01/18 History Exam Vital signs: Vital Signs 06/01/18 14:13 Temperature 98.5 F Pulse Rate 117 H Blood Pressure 136/64 Pulse Oximetry 100 Intake & Output 06/01/18 06/01/18 06/02/18 06:59 18:59 06:59 Weight 77.204 kg Narrative: PE: GENERAL: Middle-aged white female in no acute distress. SKIN: Focused skin assessment warm and dry. HEENT: PERRLA, EOMI. No scleral icterus or conjunctival pallor. No lid lag or facial droop. CARDIOVASCULAR: Regular rate and rhythm. No obvious murmurs to auscultation. No chest tenderness to palpation. RESPIRATORY: No obvious rhonchi or wheezing. Clear to auscultation. Breath sounds equal bilaterally. GASTROINTESTINAL: Abdomen soft, non-tender, nondistended. BS normal. MUSCULOSKELETAL: Extremities without clubbing, cyanosis, or edema. Bilateral lower extremities w/ multiple ulcers, open lesions, foul-smelling, +erythema. NEUROLOGICAL: Awake, alert and oriented x4. No focal neurologic deficits. Moving both upper and lower extremities spontaneously. PSYCHIATRIC: Appropriate mood and affect. Insight and judgment normal. Results - Labs CBC & Chem 7: 06/01/18 18:33 06/01/18 18:33 Labs: Short CBC 06/01/18 Range/Units 18:33 WBC 14.4 H (4.0-11.0) th/mm3 Hgb 10.5 L (11.6-15.3) gm/dL Hct 32.5 L (35.0-46.0) % Plt Count 538 H (150-450) th/mm3 BMP 06/01/18 18:33 Sodium 142 Potassium 3.3 L Chloride 106 Carbon Dioxide 28.4 BUN 6 L Creatinine 0.80 Calcium 8.0 L Liver Function 06/01/18 Range/Units 18:33 Total Bilirubin 0.3 (0.2-1.0) mg/dL AST 12 L (15-37) U/L ALT 13 (10-53) U/L Alkaline Phosphatase 94 (45-117) U/L Albumin 2.2 L (3.4-5.0) g/dL - Imaging Impressions Tibia/Fibula X-Ray 06/01/18 18:56 CONCLUSION: No acute bony findings Tibia/Fibula X-Ray 06/01/18 18:56 CONCLUSION: No acute bony findings Caprini VTE Risk Assessment Caprini VTE Risk Assessment: No/Low Risk (score <= 1) VTE Mechanical Exception: LE injury/wound Caprini Risk Assessment Model: Point Value = 1 Point Value = 2 Point Value = 3 Point Value = 5 Age 41-60 Minor surgery BMI > 25 kg/m2 Swollen legs Varicose veins or History of unexplained or recurrent spontaneous Oral contraceptives or hormone replacement Sepsis (< 1 month) Serious lung disease, including pneumonia (< 1 month) Abnormal pulmonary function Acute myocardial infarction Congestive heart failure (< 1 month) History of inflammatory bowel disease Medical patient at bed rest Age 61-74 Arthroscopic surgery Major open surgery (> 45 min) Laparoscopic surgery (> 45 min) Malignancy Confined to bed (> 72 hours) Immobilizing plaster cast Central venous access Age >= 75 History of VTE Family history of VTE Factor V Leiden Prothrombin [id number] Lupus anticoagulant Anticardiolipin antibodies Elevated serum homocysteine Heparin-induced thrombocytopenia Other congenital or acquired thrombophilia Stroke (< 1 month) Elective arthroplasty Hip, pelvis, or leg fracture Acute spinal cord injury (< 1 month) Prophylaxis Regimen: Total Risk Factor Score Risk Level Prophylaxis Regimen 0-1 Low Early ambulation 2 Moderate Order ONE of the following: *Sequential Compression Device (SCD) *Heparin 5000 units SQ BID 3-4 Higher Order ONE of the following medications: *Heparin 5000 units SQ TID *Enoxaparin/Lovenox 40 mg SQ daily (WT < 150 kg, CrCl > 30 mL/min) *Enoxaparin/Lovenox 30 mg SQ daily (WT < 150 kg, CrCl > 10-29 mL/min) *Enoxaparin/Lovenox 30 mg SQ BID (WT < 150 kg, CrCl > 30 mL/min) AND/OR *Sequential Compression Device (SCD) 5 or more Highest Order ONE of the following medications: *Heparin 5000 units SQ TID (Preferred with Epidurals) *Enoxaparin/Lovenox 40 mg SQ daily (WT < 150 kg, CrCl > 30 mL/min) *Enoxaparin/Lovenox 30 mg SQ daily (WT < 150 kg, CrCl > 10-29 mL/min) *Enoxaparin/Lovenox 30 mg SQ BID (WT < 150 kg, CrCl > 30 mL/min) AND *Sequential Compression Device (SCD) Assessment and Plan - Assessment (1) Cellulitis Code(s): L03.90 - Cellulitis, unspecified Status: Acute - Plan A/P: 1. Cellulitis: h/o chronic lower extremity ulcers w/ cellulitis, last admit 04/27/18 for same, reports compliance w/ antibiotics after discharge, now w/ recurrence x1 wk. S/p Clinda IV in ER, will continue w/ IV Clinda, add IV Cefepime, Consult Wound Management for dressings. 2. DVT Prophylaxis: Lovenox 3. Social work for d/c planning as needed 4. Case discussed at length w/ ER physician, labs/records/imaging reviewed by me. (1) Cellulitis Qualifiers: Site of cellulitis: extremity Site of cellulitis of extremity: lower extremity Laterality: unspecified laterality Qualified Code(s): L03.119 - Cellulitis of unspecified part of limb
[2018-06-01] MEDS: Sod Chloride 0.9% Inj 1,000 ML IV.CONT SCH (20:20)
[2018-06-01] MEDS: Senna/Docusate Sodium 8.6/50 MG Tablet PO SCH (21:59)
[2018-06-02] MEDS: Clindamycin 900 mg/NS Premix 900 MG/50 ML PIGGYBACK IV.SIG SCH ×2 (03:16→12:24)
[2018-06-02 07:31] LABS: Baso # (Auto) 0.1 th/mm3 (0.0-0.2); Baso % (Auto) 0.7 % (0.0-2.0); Eos # (Auto) 0.2 th/mm3 (0.0-0.4); Eos % (Auto) 1.9 % (0.0-4.0); Hematocrit 32.4 % (35.0-46.0); Lymph # (Auto) 2.3 th/mm3 (1.0-4.8); Lymph % (Auto) 22.5 % (9.0-44.0); Mean Corpuscular HGB Conc 31.1 % (32.0-36.0); Mean Corpuscular Hemoglobin 24.2 pg (27.0-34.0); Mean Corpuscular Volume 77.8 fL (80.0-100.0); Mean Platelet Volume 7.2 fL (7.0-11.0); Mono # (Auto) 0.8 th/mm3 (0.0-0.9); Mono % (Auto) 8.1 % (0.0-8.0); Neut # (Auto) 6.9 th/mm3 (1.8-7.7); Neut % (Auto) 66.8 % (16.0-70.0); Platelet Count 488 th/mm3 (150-450); Red Blood Count 4.16 mil/mm3 (4.00-5.30); Red Cell Distribution Width 18.6 % (11.6-17.2); White Blood Count 10.3 th/mm3 (4.0-11.0)
[2018-06-02 07:54] LABS: Alanine Aminotransferase 10 U/L (10-53); Albumin 1.8 g/dL (3.4-5.0); Anion Gap 9 meq/L (5-15); Aspartate Aminotransferase 10 U/L (15-37); Blood Urea Nitrogen 7 mg/dL (7-18); Calcium 7.5 mg/dL (8.5-10.1); Carbon Dioxide 30.1 meq/L (21.0-32.0); Chloride 107 meq/L (98-107); Glomerular Filtration Rate Greater Than 89 mL/min (>89); Glucose,Random 79 mg/dL (74-106); Potassium 3.3 meq/L (3.5-5.1); Sodium 146 meq/L (136-145)
[2018-06-02 07:57] LABS: Alkaline Phosphatase 83 U/L (45-117); Total Protein 5.4 g/dL (6.4-8.2)
[2018-06-02] MEDS: Enoxaparin Inj 40 MG/0.4 ML Syringe SQ SCH (09:33)
[2018-06-02] MEDS: Senna/Docusate Sodium 8.6/50 MG Tablet PO SCH ×2 (09:33→20:36)
[2018-06-02] MEDS: Sod Chloride 0.9% Inj 1,000 ML IV.CONT SCH ×2 (09:34→18:50)
--- NOTE | 2018-06-02 10:18 | P.PNIM ---
Subjective Interval history: f/u; cellulitis right leg in no acute distress. looks fairly comfortable. no fever. Physical Exam Vital signs: Vital Signs 06/01/18 14:13 06/01/18 21:51 06/01/18 23:50 Temperature 98.5 F 98.6 F 98.3 F Pulse Rate 117 H 93 H 90 Respiratory Rate 18 18 Blood Pressure 136/64 139/73 129/59 L Pulse Oximetry 100 99 99 06/02/18 03:15 06/02/18 08:00 Temperature 98.6 F 98.5 F Pulse Rate 90 87 Respiratory Rate 16 16 Blood Pressure 131/65 143/70 H Pulse Oximetry 95 97 Intake & Output 06/01/18 06/02/18 06/02/18 18:59 06:59 18:59 Intake Total 1200 / 1200 Balance 1200 / 1200 Weight 77.204 kg 77.111 kg Intake: IV 1200 / 1200 NS Inj 1,000 ML @ 100 mls/hr IV 1000 / 1000 .CONT .Q10H MARCOS Rx#:[id number] Maxipime Inj 1,000 MG In NS Inj 100 / 100 100 ML @ 200 mls/hr IV.SIG Q12H MARCOS Rx#:[id number] Cleocin 900 mg/NS Premix 900 mg 100 / 100 In 50 ml @ 100 mls/hr IV.SIG Q8H MARCOS Rx#:[id number] Other: Weight On Admission 77.111 kg - Constitutional no acute distress - Routine Respiratory Exam Present: CTA bilaterally - Routine Cardiovascular Exam Present: RRR - Routine Abdominal Exam Present: soft - Routine Extremities Exam Present: edema (bilateral pedal edema-) - Routine Skin Exam Present: wounds (noted on the right leg with some discharge.) - Routine Neurological Exam Present: alert, oriented X3 Results - Labs CBC & Chem 7: 06/02/18 06:14 06/02/18 06:14 Laboratory Results - last 24 hr 06/01/18 06/01/18 06/01/18 18:33 18:33 18:33 WBC 14.4 H RBC 4.24 Hgb 10.5 L Hct 32.5 L MCV 76.7 L MCH 24.7 L MCHC 32.2 RDW 18.5 H Plt Count 538 H MPV 6.9 L Neut % (Auto) 74.6 H Lymph % (Auto) 17.6 [place] % (Auto) 6.8 Eos % (Auto) 0.7 Baso % (Auto) 0.3 Neut # (Auto) 10.7 H Lymph # (Auto) 2.5 [place] # (Auto) 1.0 H Eos # (Auto) 0.1 Baso # (Auto) 0.0 WBC Differential . Differential Comment Auto diff final PT 10.6 INR 1.0 APTT 26.6 Sodium 142 Potassium 3.3 L Chloride 106 Carbon Dioxide 28.4 Anion Gap 8 BUN 6 L Creatinine 0.80 Estimated GFR 73 L POC Glucose Random Glucose 104 Lactic Acid Calcium 8.0 L Total Bilirubin 0.3 AST 12 L ALT 13 Alkaline Phosphatase 94 Total Protein 6.5 Albumin 2.2 L 06/01/18 06/02/18 06/02/18 20:15 06:14 06:14 WBC 10.3 RBC 4.16 Hgb 10.0 L Hct 32.4 L MCV 77.8 L MCH 24.2 L MCHC 31.1 L RDW 18.6 H Plt Count 488 H MPV 7.2 Neut % (Auto) 66.8 Lymph % (Auto) 22.5 [place] % (Auto) 8.1 H Eos % (Auto) 1.9 Baso % (Auto) 0.7 Neut # (Auto) 6.9 Lymph # (Auto) 2.3 [place] # (Auto) 0.8 Eos # (Auto) 0.2 Baso # (Auto) 0.1 WBC Differential . Differential Comment Auto diff final PT INR APTT Sodium 146 H Potassium 3.3 L Chloride 107 Carbon Dioxide 30.1 Anion Gap 9 BUN 7 Creatinine 0.53 Estimated GFR Greater than 89 POC Glucose Random Glucose 79 Lactic Acid 1.4 Calcium 7.5 L Total Bilirubin 0.2 AST 10 L ALT 10 Alkaline Phosphatase 83 Total Protein 5.4 L D Albumin 1.8 L 06/02/18 06:15 WBC RBC Hgb Hct MCV MCH MCHC RDW Plt Count MPV Neut % (Auto) Lymph % (Auto) [place] % (Auto) Eos % (Auto) Baso % (Auto) Neut # (Auto) Lymph # (Auto) [place] # (Auto) Eos # (Auto) Baso # (Auto) WBC Differential Differential Comment PT INR APTT Sodium Potassium Chloride Carbon Dioxide Anion Gap BUN Creatinine Estimated GFR POC Glucose 94 Random Glucose Lactic Acid Calcium Total Bilirubin AST ALT Alkaline Phosphatase Total Protein Albumin Microbiology 06/01/18 18:33 Abscess - Leg Gram Stain - Final - Imaging Impressions Tibia/Fibula X-Ray 06/01/18 18:56 CONCLUSION: No acute bony findings Tibia/Fibula X-Ray 06/01/18 18:56 CONCLUSION: No acute bony findings Assessment and Plan - Assessment (1) Cellulitis Code(s): L03.90 - Cellulitis, unspecified Status: Acute - Plan 1. Cellulitis: h/o chronic lower extremity ulcers w/ cellulitis, last admit 04/27/18 for same, reports compliance w/ antibiotics after discharge, now w/ recurrence x1 wk. S/p Clinda IV in ER, will continue w/ IV Clinda, added IV Cefepime, Consulted Wound Management for dressings. consult ID. 2. DVT Prophylaxis: Lovenox Discharge Planning: patient is homeless. awaiting ID and wound care evaluation. (1) Cellulitis Qualifiers: Site of cellulitis: extremity Site of cellulitis of extremity: lower extremity Laterality: unspecified laterality Qualified Code(s): L03.119 - Cellulitis of unspecified part of limb
--- NOTE | 2018-06-02 14:50 | P.PNWCN ---
Wound Care Nurse Consult Description: Consult for Wound Management of LE per Dr Parker Communicated with: HERBERTH Gordon left vocera message Dr Apple per telephone Recommendation: TID to leg wounds: Acetic acid soaked gauze/rolled gauze. Discontinue after 7 days. Patient needs to follow up with outpatient wound care clinic in one week for wound cultures, JAY's, and possible compression wraps. Additional information: Patient known to Wound Care from last admission.
[2018-06-02] MEDS ORDERED: Vancomycin Consult Pharmacy OTHER PRN (16:58)
--- NOTE | 2018-06-02 17:00 | P.CONID ---
History of Present Illness Service: ID Consult date: 06/02/18 Requesting Physician: Trev Apple Reason for Consult: RLE cellulits Primary Care Provider: No Primary Care Physician History of Present Illness: 63 yo homeless pt who denies med problems presented with few days of worsening swelling, redness and painfull lesions on LBE more prominent on the R [place] On presentation afebrile vitals, + leukocytosis of 14 K culture with group A strep and GNBs xrays showed no bony abnormalitis, + soft tissure swelling pt started on cefelpime, clindamycin she also c/o diarrhea Review of Systems All other systems reviewed negative except as stated in HPI PMFSH - History History Provided By: Patient - Medical History Medical History: Medical History (Last Reviewed 06/02/18 @ 17:33 by Jenny Sim MD) Patient denies medical problems - Surgical History Surgical History: Surgical History (Last Reviewed 06/02/18 @ 17:33 by Jenny Sim MD) No history of previous surgery - Family History Family History: Family History (Last Reviewed 06/02/18 @ 17:33 by Jenny Sim MD) Other Family history normal - Social History I have reviewed the patient's Social History: Yes - Tobacco History Second Hand Smoke Exposure: Yes Tobacco Use In Past 30 Days: Yes Smoking Status: Current every day smoker Tobacco Type: Cigarettes - Alcohol History How Often Do You Have a Drink Containing Alcohol: Never - Substance Use History Substance History: No History of Abuse - Travel History Recent Travel in the [place] Within the Last 8 Weeks: No Recent Travel Out of the Country Within the Last 8 Weeks: No - Immunization History Tetanus Immunization: >5 Years Medications and Allergies Active Medications: Active Medications Acetaminophen (Tylenol) 650 mg PO Q4H PRN PRN Reason: Temp > 100.4 Hydrocodone Bitart/Acetaminophen ([place] 5/325) 1 tab PO Q4H PRN PRN Reason: PAIN 3-5 Hydrocodone Bitart/Acetaminophen ([place] 10/325) 1 tab PO Q4H PRN PRN Reason: PAIN 6-10 Acetic Acid (Acetic Acid 0.25% Irrig) 250 ml IRRIGATION TID MARCOS Stop: 06/08/18 21:00 Al Hydroxide/Mg Hydroxide (Milk Of Magnesia Liq) 30 ml PO Q12H PRN PRN Reason: Mild Constipation Bisacodyl (Dulcolax Supp) 10 mg RECTAL DAILY PRN PRN Reason: SEVERE CONSITIPATION Enoxaparin Sodium (Lovenox Inj) 40 mg SQ Q24H [facility] Last Admin: 06/02/18 09:33 Dose: 40 mg Sodium Chloride (Ns Inj) 1,000 mls @ 100 mls/hr IV.CONT .Q10H [facility] Last Infusion: 06/02/18 14:47 Dose: Infused Cefepime HCl 1,000 mg/ Sodium (Chloride) 100 mls @ 200 mls/hr IV.SIG Q12H MARCOS Last Infusion: 06/02/18 14:47 Dose: Infused Piperacillin/Tazobactam/Dextrose (Zosyn 3.375 Gm Premix) 50 mls @ 100 mls/hr IV.SIG Q6H MARCOS Lactulose (Lactulose Liq) 30 ml PO DAILY PRN PRN Reason: SEVERE CONSITIPATION Ondansetron HCl (Zofran Inj) 4 mg IV.PUSH Q6H PRN PRN Reason: NAUSEA OR VOMITING Pharmacy Profile Note (Vancomycin Consult Pharmacy) 1 each OTHER UNSCH PRN PRN Reason: Pharmacy to dose Senna/Docusate Sodium (Lily-Colace) 1 tab PO BID [facility] Last Admin: 06/02/18 09:33 Dose: 1 tab Sennosides (Senokot) 17.2 mg PO Q12H PRN PRN Reason: Moderate Constipation Allergies Allergy/AdvReac Type Severity Reaction Status Date / Time No Known Allergies Allergy Verified 06/01/18 18:42 Home Medications Medication Instructions Recorded Confirmed Type No Known Home Medications 04/26/18 06/01/18 History Exam Vital signs: Vital Signs 06/01/18 21:51 06/01/18 23:50 06/02/18 03:15 Temperature 98.6 F 98.3 F 98.6 F Pulse Rate 93 H 90 90 Respiratory Rate 18 18 16 Blood Pressure 139/73 129/59 L 131/65 Pulse Oximetry 99 99 95 06/02/18 08:00 06/02/18 12:00 06/02/18 16:00 Temperature 98.5 F 98.3 F 98.2 F Pulse Rate 87 81 87 Respiratory Rate 16 16 18 Blood Pressure 143/70 H 139/65 137/65 Pulse Oximetry 97 97 97 Intake & Output 10/07/0906/02/18 06/02/18 18:59 06:59 18:59 Intake Total 1200 / 1200 1150 / 1150 Balance 1200 / 1200 1150 / 1150 Weight 77.204 kg 77.111 kg Intake: IV 1200 / 1200 1150 / 1150 NS Inj 1,000 ML @ 100 mls/hr IV 1000 / 1000 1000 / 1000 .CONT .Q10H MARCOS Rx#:[id number] Maxipime Inj 1,000 MG In NS Inj 100 / 100 100 / 100 100 ML @ 200 mls/hr IV.SIG Q12H MARCOS Rx#:[id number] Cleocin 900 mg/NS Premix 900 mg 100 / 100 50 / 50 In 50 ml @ 100 mls/hr IV.SIG Q8H MARCOS Rx#:[id number] Other: Weight On Admission 77.111 kg - Constitutional no acute distress, obese - Routine HEENT Exam Head: Present: normocephalic, atraumatic Eye: Present: EOMI, PERRL ENT: Present: mucous membranes moist. Absent: dentition normal (very poor dentition) - Routine Neck Exam Present: supple. Absent: JVD - Routine Respiratory Exam Present: decreased breath sounds, CTA bilaterally. Absent: accessory muscle use - Routine Cardiovascular Exam Present: RRR, S1, S2. Absent: murmur, gallop - Routine Abdominal Exam Present: soft, normoactive bowel sounds, distended (mildly). Absent: tenderness , organomegaly, mass - Routine Extremities Exam Present: edema (moderate 2-3 + soft pitting edema), normal capillary refill. Absent: cyanosis, clubbing Comments: + edema, erythema of BLE much more prominent on the L Numerous skin pustules, crusted with foul smelling drainage - Routine Skin Exam Present: lesions - Routine Neurological Exam Present: alert, oriented X3, CN II-XII intact, moving all extremities, normal speech - Routine Psychiatric Exam Present: normal affect, cooperative Results - Labs CBC & Chem 7: 06/02/18 06:14 06/02/18 06:14 Labs: Laboratory Results - last 24 hr 06/01/18 06/01/18 06/01/18 18:33 18:33 18:33 WBC 14.4 H RBC 4.24 Hgb 10.5 L Hct 32.5 L MCV 76.7 L MCH 24.7 L MCHC 32.2 RDW 18.5 H Plt Count 538 H MPV 6.9 L Neut % (Auto) 74.6 H Lymph % (Auto) 17.6 [facility] % (Auto) 6.8 Eos % (Auto) 0.7 Baso % (Auto) 0.3 Neut # (Auto) 10.7 H Lymph # (Auto) 2.5 [facility] # (Auto) 1.0 H Eos # (Auto) 0.1 Baso # (Auto) 0.0 WBC Differential . Differential Comment Auto diff final PT 10.6 INR 1.0 APTT 26.6 Sodium 142 Potassium 3.3 L Chloride 106 Carbon Dioxide 28.4 Anion Gap 8 BUN 6 L Creatinine 0.80 Estimated GFR 73 L POC Glucose Random Glucose 104 Lactic Acid Calcium 8.0 L Total Bilirubin 0.3 AST 12 L ALT 13 Alkaline Phosphatase 94 Total Protein 6.5 Albumin 2.2 L 06/01/18 06/02/18 06/02/18 20:15 06:14 06:14 WBC 10.3 RBC 4.16 Hgb 10.0 L Hct 32.4 L MCV 77.8 L MCH 24.2 L MCHC 31.1 L RDW 18.6 H Plt Count 488 H MPV 7.2 Neut % (Auto) 66.8 Lymph % (Auto) 22.5 [facility] % (Auto) 8.1 H Eos % (Auto) 1.9 Baso % (Auto) 0.7 Neut # (Auto) 6.9 Lymph # (Auto) 2.3 [facility] # (Auto) 0.8 Eos # (Auto) 0.2 Baso # (Auto) 0.1 WBC Differential . Differential Comment Auto diff final PT INR APTT Sodium 146 H Potassium 3.3 L Chloride 107 Carbon Dioxide 30.1 Anion Gap 9 BUN 7 Creatinine 0.53 Estimated GFR Greater than 89 POC Glucose Random Glucose 79 Lactic Acid 1.4 Calcium 7.5 L Total Bilirubin 0.2 AST 10 L ALT 10 Alkaline Phosphatase 83 Total Protein 5.4 L D Albumin 1.8 L 06/02/18 06:15 WBC RBC Hgb Hct MCV MCH MCHC RDW Plt Count MPV Neut % (Auto) Lymph % (Auto) [facility] % (Auto) Eos % (Auto) Baso % (Auto) Neut # (Auto) Lymph # (Auto) [facility] # (Auto) Eos # (Auto) Baso # (Auto) WBC Differential Differential Comment PT INR APTT Sodium Potassium Chloride Carbon Dioxide Anion Gap BUN Creatinine Estimated GFR POC Glucose 94 Random Glucose Lactic Acid Calcium Total Bilirubin AST ALT Alkaline Phosphatase Total Protein Albumin - Imaging Impressions Tibia/Fibula X-Ray 06/01/18 18:56 CONCLUSION: No acute bony findings Tibia/Fibula X-Ray 06/01/18 18:56 CONCLUSION: No acute bony findings Assessment and Plan - Plan BLE edema Cellulitis BLE, more prominent on the RLE Infected lesions, likley infected insect bites, mixed GAS and GNBs, including anaerobs (odor) abbx adsociated diarrhea change abx to zosyn, vancomyin fu clincially additional rec's per clin progress chk stool for c.diff
--- NOTE | 2018-06-02 17:00 | P.PNADD ---
Addendum to Inpatient Note Additional information: pt seen around 4:30 full note to follow SSTI, mixed juan BLE Venostasis PLAN: inderjit shine
[2018-06-02] MEDS ORDERED: Sodium Chloride 0.9% 2 ML Flush PRN IV.FLUSH (17:48)
[2018-06-02] MEDS: Piperacil/Tazo 3.375 GM Premix 50 ML IV.SIG SCH ×2 (19:01→23:55)
[2018-06-02] MEDS: ACETIC ACID 0.25% IRRIGATION SCH (19:01)
[2018-06-02] MEDS: Sodium Chloride 0.9% 2 ML Flush BID IV.FLUSH SCH (20:36)
[2018-06-02] MEDS: Vancomycin Inj 1,250 MG in Sodium Chlor 0.9% Inj 250 ML IV.SIG SCH (20:37)
[2018-06-03] MEDS: Sod Chloride 0.9% Inj 1,000 ML IV.CONT SCH ×2 (04:03→13:42)
[2018-06-03] MEDS: Piperacil/Tazo 3.375 GM Premix 50 ML IV.SIG SCH ×4 (06:42→23:26)
[2018-06-03] MEDS: Vancomycin Inj 1,250 MG in Sodium Chlor 0.9% Inj 250 ML IV.SIG SCH ×2 (08:11→21:57)
[2018-06-03] MEDS: Senna/Docusate Sodium 8.6/50 MG Tablet PO SCH ×2 (08:11→21:14)
[2018-06-03] MEDS: Enoxaparin Inj 40 MG/0.4 ML Syringe SQ SCH (08:11)
[2018-06-03] MEDS: ACETIC ACID 0.25% IRRIGATION SCH ×3 (08:11→17:42)
--- NOTE | 2018-06-03 09:25 | P.PNIM ---
Subjective Interval history: f/u; cellulitis in no acute distress. feels better today. has some pain to the right leg. no fever. Physical Exam Vital signs: Vital Signs 06/02/18 12:00 06/02/18 16:00 06/02/18 19:43 Temperature 98.3 F 98.2 F 98.5 F Pulse Rate 81 87 93 H Respiratory Rate 16 18 18 Blood Pressure 139/65 137/65 132/64 Pulse Oximetry 97 97 97 06/02/18 23:35 06/03/18 04:00 06/03/18 07:47 Temperature 98.0 F 98.2 F 98.7 F Pulse Rate 82 80 78 Respiratory Rate 18 18 20 Blood Pressure 136/74 134/68 141/68 H Pulse Oximetry 95 96 96 Intake & Output 06/02/18 06/03/18 06/03/18 18:59 06:59 18:59 Intake Total 1150 / 1150 362.5 / 362.5 50 / 50 Balance 1150 / 1150 362.5 / 362.5 50 / 50 Intake: IV 1150 / 1150 362.5 / 362.5 50 / 50 NS Inj 1,000 ML @ 100 mls/hr IV 1000 / 1000 .CONT .Q10H MARCOS Rx#:[id number] Maxipime Inj 1,000 MG In NS Inj 100 / 100 100 ML @ 200 mls/hr IV.SIG Q12H MARCOS Rx#:[id number] Cleocin 900 mg/NS Premix 900 mg 50 / 50 In 50 ml @ 100 mls/hr IV.SIG Q8H MARCOS Rx#:[id number] Zosyn 3.375 GM Premix 50 ML @ 100 / 100 50 / 50 100 mls/hr IV.SIG Q6H MARCOS Rx#: [id number] Vancomycin Inj 1,250 MG In NS 262.5 / 262.5 Inj 250 ML @ 250 mls/hr IV.SIG Q12H MARCOS Rx#:[id number] Other: # Voids 3 Date of Last Bowel Movement 06/02/18 - Constitutional no acute distress - Routine Respiratory Exam Present: CTA bilaterally - Routine Cardiovascular Exam Present: RRR - Routine Abdominal Exam Present: soft - Routine Extremities Exam Comments: both legs covered with clean dressing. - Routine Neurological Exam Present: alert, oriented X3 Results - Labs CBC & Chem 7: 06/02/18 06:14 06/02/18 06:14 Microbiology 06/01/18 18:33 Abscess - Leg Gram Stain - Final 06/01/18 18:33 Abscess - Leg Wound Culture - Preliminary gram negative rods Group A beta Strep 06/01/18 20:10 Blood - Peripheral Aerobic Blood Culture - Preliminary No growth in 1 day 06/01/18 20:10 Blood - Peripheral Anaerobic Blood Culture - Preliminary gram positive cocci 06/01/18 20:15 Blood - Peripheral Aerobic Blood Culture - Preliminary No growth in 1 day 06/01/18 20:15 Blood - Peripheral Anaerobic Blood Culture - Preliminary No growth in 1 day Assessment and Plan - Assessment (1) Cellulitis Code(s): L03.90 - Cellulitis, unspecified Status: Acute - Plan A/P 1. bilateral leg cellulitis- more pronounced on the right side- continue with IV Vanco and Zosyn- will follow the cultures. ID is following. wound care consult appreciated; recommended Acetic acid soaked gauze/ rolled gauze/ to be Discontinued after 7 days. needs a f/u with wound care clinic upon discharge. 2. diarrhea- is better- stool for c-diff pending. 3. DVT Prophylaxis: Lovenox Discharge Planning: when clinically better and cleared by ID. (1) Cellulitis Qualifiers: Site of cellulitis: extremity Site of cellulitis of extremity: lower extremity Laterality: unspecified laterality Qualified Code(s): L03.119 - Cellulitis of unspecified part of limb
[2018-06-03] MEDS: Sodium Chloride 0.9% 2 ML Flush BID IV.FLUSH SCH ×2 (11:31→21:16)
--- NOTE | 2018-06-03 15:27 | P.PNID ---
Subjective Remarks: better afebrile WBC going down + blood clx 1/ GPC Antibiotics: zosybn vanco Allergies/Adverse Reactions: Allergies No Known Allergies Allergy (Verified 06/01/18 18:42) Objective Vital Signs 06/02/18 16:00 06/02/18 19:43 06/02/18 23:35 Temperature 98.2 F 98.5 F 98.0 F Pulse Rate 87 93 H 82 Respiratory Rate 18 18 18 Blood Pressure 137/65 132/64 136/74 Pulse Oximetry 97 97 95 06/03/18 04:00 06/03/18 07:47 06/03/18 10:24 Temperature 98.2 F 98.7 F Pulse Rate 80 78 Respiratory Rate 18 20 18 Blood Pressure 134/68 141/68 H Pulse Oximetry 96 96 06/03/18 11:47 Temperature 98.7 F Pulse Rate 84 Respiratory Rate 16 Blood Pressure 138/72 Pulse Oximetry 93 L Intake & Output 06/02/18 06/03/18 06/03/18 18:59 06:59 18:59 Intake Total 1150 / 1150 362.5 / 362.5 1624 / 1624 Balance 1150 / 1150 362.5 / 362.5 1624 / 1624 Intake: IV 1150 / 1150 362.5 / 362.5 1624 / 1624 NS Inj 1,000 ML @ 100 mls/hr IV 1000 / 1000 1000 / 1000 .CONT .Q10H MARCOS Rx#:[id number] Maxipime Inj 1,000 MG In NS Inj 100 / 100 100 ML @ 200 mls/hr IV.SIG Q12H MARCOS Rx#:[id number] Cleocin 900 mg/NS Premix 900 mg 50 / 50 In 50 ml @ 100 mls/hr IV.SIG Q8H MARCOS Rx#:[id number] Zosyn 3.375 GM Premix 50 ML @ 100 / 100 100 / 100 100 mls/hr IV.SIG Q6H MARCOS Rx#: [id number] Vancomycin Inj 1,250 MG In NS 262.5 / 262.5 524 / 524 Inj 250 ML @ 250 mls/hr IV.SIG Q12H MARCOS Rx#:[id number] Other: # Voids 3 Date of Last Bowel Movement 06/02/18 06/01/18 18:33 Abscess - Leg Gram Stain - Final 06/01/18 18:33 Abscess - Leg Wound Culture - Preliminary Group A beta Strep S. aureus MRSA 06/01/18 20:10 Blood - Peripheral Aerobic Blood Culture - Preliminary No growth in 2 days 06/01/18 20:10 Blood - Peripheral Anaerobic Blood Culture - Preliminary gram positive cocci 06/01/18 20:15 Blood - Peripheral Aerobic Blood Culture - Preliminary No growth in 2 days 06/01/18 20:15 Blood - Peripheral Anaerobic Blood Culture - Preliminary No growth in 2 days Lab - Hematology Results 06/01/18 06/02/18 18:33 06:14 WBC 14.4 H 10.3 RBC 4.24 4.16 Hgb 10.5 L 10.0 L Hct 32.5 L 32.4 L MCV 76.7 L 77.8 L MCH 24.7 L 24.2 L MCHC 32.2 31.1 L RDW 18.5 H 18.6 H Plt Count 538 H 488 H MPV 6.9 L 7.2 Neut % (Auto) 74.6 H 66.8 Lymph % (Auto) 17.6 22.5 [place] % (Auto) 6.8 8.1 H Eos % (Auto) 0.7 1.9 Baso % (Auto) 0.3 0.7 Neut # (Auto) 10.7 H 6.9 Lymph # (Auto) 2.5 2.3 [place] # (Auto) 1.0 H 0.8 Eos # (Auto) 0.1 0.2 Baso # (Auto) 0.0 0.1 WBC Differential . . Differential Comment Auto diff final Auto diff final Lab - Chemistry Results 06/01/18 06/01/18 06/02/18 18:33 20:15 06:14 Sodium 142 146 H Potassium 3.3 L 3.3 L Chloride 106 107 Carbon Dioxide 28.4 30.1 Anion Gap 8 9 BUN 6 L 7 Creatinine 0.80 0.53 Estimated GFR 73 L Greater than 89 POC Glucose Random Glucose 104 79 Lactic Acid 1.4 Calcium 8.0 L 7.5 L Total Bilirubin 0.3 0.2 AST 12 L 10 L ALT 13 10 Alkaline Phosphatase 94 83 Total Protein 6.5 5.4 L D Albumin 2.2 L 1.8 L 06/02/18 06:15 Sodium Potassium Chloride Carbon Dioxide Anion Gap BUN Creatinine Estimated GFR POC Glucose 94 Random Glucose Lactic Acid Calcium Total Bilirubin AST ALT Alkaline Phosphatase Total Protein Albumin Imaging: ITS Impressions Tibia/Fibula X-Ray 06/01/18 18:56 CONCLUSION: No acute bony findings Physical Exam: GENERAL: NAD SKIN: Warm and dry. EYES: Pupils equal and round. No scleral icterus. No injection or drainage. ENT: No nasal bleeding or discharge. Mucous membranes pink and moist. very poor dentition CARDIOVASCULAR: Regular rate and rhythm. No murmurs RESPIRATORY: No accessory muscle use. Clear to auscultation. Breath sounds equal bilaterally. GASTROINTESTINAL: Abdomen soft, non-tender, nondistended. Hepatic and splenic margins not palpable. MUSCULOSKELETAL: Extremities without clubbing, cyanosis, Much improved edema, erythema Lesions are getting dry No odor NEUROLOGICAL: Awake and alert. Non focal PSYCHIATRIC: calm, cooperative Assessment and Plan - Plan BLE edema Cellulitis BLE, more prominent on the RLE Infected lesions, likley infected insect bites, mixed - MRSA, GAS and GNBs, including anaerobs (odor) abx adsociated diarrhea cont zosyn, vancomyin for now FU ID on GPC from blood clx additional rec's per clin progress chk stool for c.diff dw Dr Youssef
[2018-06-04] MEDS: Sod Chloride 0.9% Inj 1,000 ML IV.CONT SCH ×3 (04:00→20:34)
[2018-06-04] MEDS: Piperacil/Tazo 3.375 GM Premix 50 ML IV.SIG SCH ×3 (06:05→18:06)
[2018-06-04] MEDS ORDERED: Pharmacy Ordered Lab Info OTHER ONE (07:45)
[2018-06-04 07:55] LABS: Baso % (Auto) 0.4 % (0.0-2.0); Eos # (Auto) 0.3 th/mm3 (0.0-0.4); Eos % (Auto) 2.7 % (0.0-4.0); Hematocrit 32.7 % (35.0-46.0); Hemoglobin 10.6 gm/dL (11.6-15.3); Lymph % (Auto) 19.1 % (9.0-44.0); Mean Corpuscular HGB Conc 32.4 % (32.0-36.0); Mean Corpuscular Volume 77.2 fL (80.0-100.0); Mean Platelet Volume 6.8 fL (7.0-11.0); Mono # (Auto) 0.7 th/mm3 (0.0-0.9); Mono % (Auto) 6.6 % (0.0-8.0); Neut # (Auto) 7.5 th/mm3 (1.8-7.7); Neut % (Auto) 71.2 % (16.0-70.0); Platelet Count 485 th/mm3 (150-450); Red Blood Count 4.23 mil/mm3 (4.00-5.30); Red Cell Distribution Width 18.9 % (11.6-17.2); White Blood Count 10.5 th/mm3 (4.0-11.0)
[2018-06-04 08:12] LABS: Anion Gap 7 meq/L (5-15); Blood Urea Nitrogen 6 mg/dL (7-18); Calcium 7.9 mg/dL (8.5-10.1); Carbon Dioxide 29.4 meq/L (21.0-32.0); Chloride 111 meq/L (98-107); Glomerular Filtration Rate Greater Than 89 mL/min (>89); Glucose,Random 80 mg/dL (74-106); Potassium 3.7 meq/L (3.5-5.1); Sodium 147 meq/L (136-145)
[2018-06-04] MEDS: Enoxaparin Inj 40 MG/0.4 ML Syringe SQ SCH (08:34)
[2018-06-04] MEDS: Senna/Docusate Sodium 8.6/50 MG Tablet PO SCH ×2 (08:34→20:42)
[2018-06-04] MEDS: ACETIC ACID 0.25% IRRIGATION SCH ×3 (08:35→18:06)
[2018-06-04] MEDS: Vancomycin Inj 1,250 MG in Sodium Chlor 0.9% Inj 250 ML IV.SIG SCH ×2 (09:09→20:33)
[2018-06-04] MEDS: Sodium Chloride 0.9% 2 ML Flush BID IV.FLUSH SCH ×2 (12:16→20:40)
--- NOTE | 2018-06-04 14:35 | P.PN ---
Subjective Interval history: She is seen sitting up in room eating breakfast. She reports that she is feeling better and she would like to be discharged. She is planning to go back to [place] via bus. No chest pain or shortness of breath. No nausea vomiting or diarrhea. No fever or chills Physical Exam Vital signs: Vital Signs 06/03/18 15:29 06/03/18 19:34 06/03/18 20:00 Temperature 99.2 F 98.2 F Pulse Rate 87 93 H Respiratory Rate 16 18 18 Blood Pressure 131/64 133/62 Pulse Oximetry 97 97 06/03/18 23:42 06/04/18 03:44 06/04/18 08:00 Temperature 97.9 F 97.9 F 98.0 F Pulse Rate 87 89 92 H Respiratory Rate 18 17 12 Blood Pressure 122/56 L 148/74 H 132/75 Pulse Oximetry 95 96 97 06/04/18 12:00 Temperature 98.5 F Pulse Rate 82 Respiratory Rate 20 Blood Pressure 140/67 Pulse Oximetry 98 Intake & Output 06/03/18 06/04/18 06/04/18 18:59 06:59 18:59 Intake Total 1674 / 1674 1362.5 / 1362.5 2074.5 / 2074.5 Balance 1674 / 1674 1362.5 / 1362.5 2074.5 / 2074.5 Weight 77.111 kg Intake: IV 1674 / 1674 1362.5 / 1362.5 1574.5 / 1574.5 NS Inj 1,000 ML @ 100 mls/hr IV 1000 / 1000 1000 / 1000 1000 / 1000 .CONT .Q10H MARCOS Rx#:[id number] Zosyn 3.375 GM Premix 50 ML @ 150 / 150 100 / 100 50 / 50 100 mls/hr IV.SIG Q6H MARCOS Rx#: [id number] Vancomycin Inj 1,250 MG In NS 524 / 524 262.5 / 262.5 524.5 / 524.5 Inj 250 ML @ 250 mls/hr IV.SIG Q12H MARCOS Rx#:[id number] Oral 500 / 500 Other: Date of Last Bowel Movement 06/02/18 Narrative: GENERAL: Middle-aged white female in no acute distress. SKIN: Focused skin assessment warm and dry. HEENT: PERRLA, EOMI. No scleral icterus or conjunctival pallor. No lid lag or facial droop. CARDIOVASCULAR: Regular rate and rhythm. RESPIRATORY: No obvious rhonchi or wheezing. Clear to auscultation. Breath sounds equal bilaterally. GASTROINTESTINAL: Abdomen soft, non-tender, nondistended. BS normal. MUSCULOSKELETAL: Bilateral lower extremities w/ multiple ulcers, open lesions, foul-smelling, +erythema. Wrapped in gauze with no significant drainage. NEUROLOGICAL: Awake, alert and oriented x4. No focal neurologic deficits. Moving both upper and lower extremities spontaneously. PSYCHIATRIC: Appropriate mood and affect. Insight and judgment normal. Results - Labs CBC & Chem 7: 06/04/18 07:45 06/04/18 07:45 Laboratory Results - last 24 hr 06/03/18 06/04/18 06/04/18 17:25 07:45 07:45 WBC 10.5 RBC 4.23 Hgb 10.6 L Hct 32.7 L MCV 77.2 L MCH 25.0 L MCHC 32.4 RDW 18.9 H Plt Count 485 H MPV 6.8 L Neut % (Auto) 71.2 H Lymph % (Auto) 19.1 [place] % (Auto) 6.6 Eos % (Auto) 2.7 Baso % (Auto) 0.4 Neut # (Auto) 7.5 Lymph # (Auto) 2.0 [place] # (Auto) 0.7 Eos # (Auto) 0.3 Baso # (Auto) 0.0 WBC Differential . Differential Comment Auto diff final Sodium 147 H Potassium 3.7 Chloride 111 H Carbon Dioxide 29.4 Anion Gap 7 BUN 6 L Creatinine 0.64 Estimated GFR Greater than 89 Random Glucose 80 Calcium 7.9 L TSH 4.130 H Vancomycin Trough 06/04/18 08:30 WBC RBC Hgb Hct MCV MCH MCHC RDW Plt Count MPV Neut % (Auto) Lymph % (Auto) [place] % (Auto) Eos % (Auto) Baso % (Auto) Neut # (Auto) Lymph # (Auto) [place] # (Auto) Eos # (Auto) Baso # (Auto) WBC Differential Differential Comment Sodium Potassium Chloride Carbon Dioxide Anion Gap BUN Creatinine Estimated GFR Random Glucose Calcium TSH Vancomycin Trough 10.6 H Microbiology 06/01/18 20:15 Blood - Peripheral Aerobic Blood Culture - Preliminary No growth in 3 days 06/01/18 20:15 Blood - Peripheral Anaerobic Blood Culture - Preliminary Staphylococcus coag negative 06/01/18 20:10 Blood - Peripheral Aerobic Blood Culture - Final Staphylococcus hominis-hominis 06/01/18 20:10 Blood - Peripheral Anaerobic Blood Culture - Preliminary gram positive cocci 06/01/18 18:33 Abscess - Leg Gram Stain - Final 06/01/18 18:33 Abscess - Leg Wound Culture - Final Group A beta Strep S. aureus MRSA Assessment and Plan - Assessment (1) Cellulitis Code(s): L03.90 - Cellulitis, unspecified Status: Acute - Plan A/P bilateral leg cellulitis- more pronounced on the right side- continue with IV Vanco and Zosyn- will follow the cultures. ID is following. wound care consult appreciated; recommended Acetic acid soaked gauze/ rolled gauze/ to be Discontinued after 7 days. needs a f/u with wound care clinic upon discharge. diarrhea is better- stool for c-diff pending. DVT Prophylaxis: Lovenox Discharge Planning: when clinically better and cleared by ID. (1) Cellulitis Qualifiers: Site of cellulitis: extremity Site of cellulitis of extremity: lower extremity Laterality: unspecified laterality Qualified Code(s): L03.119 - Cellulitis of unspecified part of limb
[2018-06-05] MEDS: Piperacil/Tazo 3.375 GM Premix 50 ML IV.SIG SCH ×4 (00:48→18:34)
[2018-06-05 06:26] LABS: Anion Gap 8 meq/L (5-15); Blood Urea Nitrogen 7 mg/dL (7-18); Calcium 7.9 mg/dL (8.5-10.1); Carbon Dioxide 28.3 meq/L (21.0-32.0); Chloride 109 meq/L (98-107); Glomerular Filtration Rate Greater Than 89 mL/min (>89); Glucose,Random 75 mg/dL (74-106); Potassium 3.8 meq/L (3.5-5.1); Sodium 145 meq/L (136-145)
[2018-06-05] MEDS: Sod Chloride 0.9% Inj 1,000 ML IV.CONT SCH ×2 (06:52→13:37)
[2018-06-05] MEDS: Vancomycin Inj 1,250 MG in Sodium Chlor 0.9% Inj 250 ML IV.SIG SCH (08:05)
[2018-06-05] MEDS: Enoxaparin Inj 40 MG/0.4 ML Syringe SQ SCH (08:05)
[2018-06-05] MEDS: ACETIC ACID 0.25% IRRIGATION SCH ×3 (08:05→18:25)
[2018-06-05] MEDS: Sodium Chloride 0.9% 2 ML Flush BID IV.FLUSH SCH ×2 (08:06→20:07)
[2018-06-05] MEDS: Senna/Docusate Sodium 8.6/50 MG Tablet PO SCH ×2 (08:06→20:07)
--- NOTE | 2018-06-05 16:48 | P.PN ---
Subjective Interval history: Patient is seen sitting quietly in bed. Denies any new concerns or complaints. Tells me that diarrhea continues to improve and stool is now fairly well formed. No nausea or vomiting. No fever or chills. Physical Exam Vital signs: Vital Signs 06/04/18 20:00 06/05/18 00:00 06/05/18 03:39 Temperature 98.2 F Pulse Rate 84 85 Respiratory Rate 17 16 17 Blood Pressure 133/60 120/58 L Pulse Oximetry 96 98 06/05/18 04:46 06/05/18 07:46 06/05/18 12:00 Temperature 98.2 F 98.2 F 98.1 F Pulse Rate 75 72 69 Respiratory Rate 16 18 18 Blood Pressure 120/58 L 140/65 145/71 H Pulse Oximetry 99 98 97 06/05/18 16:00 Temperature 98.1 F Pulse Rate 75 Respiratory Rate 18 Blood Pressure 145/70 H Pulse Oximetry 100 Intake & Output 06/04/18 06/05/18 06/05/18 18:59 06:59 18:59 Intake Total 2124.5 / 2124.5 2362.5 / 2362.5 2600 / 2600 Balance 2124.5 / 2124.5 2362.5 / 2362.5 2600 / 2600 Weight 77.14 kg Intake: IV 1624.5 / 1624.5 2362.5 / 2362.5 1000 / 1000 NS Inj 1,000 ML @ 100 mls/hr IV 1000 / 1000 2000 / 2000 1000 / 1000 .CONT .Q10H MARCOS Rx#:[id number] Zosyn 3.375 GM Premix 50 ML @ 100 / 100 100 / 100 100 mls/hr IV.SIG Q6H MARCOS Rx#: [id number] Vancomycin Inj 1,250 MG In NS 524.5 / 524.5 262.5 / 262.5 Inj 250 ML @ 250 mls/hr IV.SIG Q12H MARCOS Rx#:[id number] Oral 500 / 500 1600 / 1600 Other: # Voids 3 Date of Last Bowel Movement 06/04/18 06/05/18 Narrative: GENERAL: Middle-aged white female in no acute distress. SKIN: Focused skin assessment warm and dry. HEENT: PERRLA, EOMI. No scleral icterus or conjunctival pallor. No lid lag or facial droop. CARDIOVASCULAR: Regular rate and rhythm. RESPIRATORY: No obvious rhonchi or wheezing. Clear to auscultation. Breath sounds equal bilaterally. GASTROINTESTINAL: Abdomen soft, non-tender, nondistended. BS normal. MUSCULOSKELETAL: Bilateral lower extremities w/ multiple ulcers, open lesions, foul-smelling, +erythema. Wrapped in gauze with no significant drainage. NEUROLOGICAL: Awake, alert and oriented x4. No focal neurologic deficits. Moving both upper and lower extremities spontaneously. PSYCHIATRIC: Appropriate mood and affect. Insight and judgment normal. Results - Labs CBC & Chem 7: 06/04/18 07:45 06/05/18 03:20 Laboratory Results - last 24 hr 06/05/18 03:20 Sodium 145 Potassium 3.8 Chloride 109 H Carbon Dioxide 28.3 Anion Gap 8 BUN 7 Creatinine 0.61 Estimated GFR Greater than 89 Random Glucose 75 Calcium 7.9 L Microbiology 06/01/18 20:10 Blood - Peripheral Aerobic Blood Culture - Final Staphylococcus hominis-hominis 06/01/18 20:10 Blood - Peripheral Anaerobic Blood Culture - Final 06/01/18 20:15 Blood - Peripheral Aerobic Blood Culture - Preliminary No growth in 4 days 06/01/18 20:15 Blood - Peripheral Anaerobic Blood Culture - Preliminary Staphylococcus coag negative Assessment and Plan - Assessment (1) Cellulitis Code(s): L03.90 - Cellulitis, unspecified Status: Acute - Plan A/P bilateral leg cellulitis- more pronounced on the right side- continue with IV Vanco and Zosyn- will follow the cultures. ID is following. wound care consult appreciated; recommended Acetic acid soaked gauze/ rolled gauze/ to be Discontinued after 7 days. needs a f/u with wound care clinic upon discharge. diarrhea is better- stool for c-diff collected per nursing, but no results found. Stool is now formed, no recollect. DVT Prophylaxis: Lovenox Discharge Planning: when clinically better and cleared by ID. (1) Cellulitis Qualifiers: Site of cellulitis: extremity Site of cellulitis of extremity: lower extremity Laterality: unspecified laterality Qualified Code(s): L03.119 - Cellulitis of unspecified part of limb
[2018-06-05] MEDS: Vancomycin Inj 1,500 MG in Sodium Chlor 0.9% Inj 500 ML IV.SIG SCH (20:20)
[2018-06-06] MEDS: Sod Chloride 0.9% Inj 1,000 ML IV.CONT SCH ×3 (00:17→23:53)
[2018-06-06] MEDS: Piperacil/Tazo 3.375 GM Premix 50 ML IV.SIG SCH ×5 (00:17→23:50)
[2018-06-06] MEDS ORDERED: Pharmacy Ordered Lab Info OTHER ONE (07:45)
[2018-06-06] MEDS: ACETIC ACID 0.25% IRRIGATION SCH ×3 (08:33→17:00)
[2018-06-06] MEDS: Senna/Docusate Sodium 8.6/50 MG Tablet PO SCH ×2 (08:33→23:53)
[2018-06-06] MEDS: Enoxaparin Inj 40 MG/0.4 ML Syringe SQ SCH (08:33)
[2018-06-06] MEDS: Vancomycin Inj 1,500 MG in Sodium Chlor 0.9% Inj 500 ML IV.SIG SCH ×2 (09:01→20:34)
[2018-06-06] MEDS: Sodium Chloride 0.9% 2 ML Flush BID IV.FLUSH SCH ×2 (09:14→23:53)
--- NOTE | 2018-06-06 16:34 | P.PNIM ---
Subjective Interval history: The patient was resting in bed comfortably. She said that her legs were improving. She has been ambulating and tolerating a diet. No acute concerns at this time. Physical Exam Vital signs: Vital Signs 06/05/18 20:00 06/06/18 00:00 06/06/18 04:00 Temperature 98.2 F 98.2 F 97.6 F Pulse Rate 80 78 80 Respiratory Rate 16 16 18 Blood Pressure 136/76 189/85 H 134/63 Pulse Oximetry 98 100 95 06/06/18 08:00 06/06/18 12:00 06/06/18 16:00 Temperature 98.1 F 98.1 F 98.0 F Pulse Rate 72 79 78 Respiratory Rate 20 20 20 Blood Pressure 147/67 H 147/61 H 143/67 H Pulse Oximetry 95 96 96 Intake & Output 06/05/18 06/06/18 06/06/18 18:59 06:59 18:59 Intake Total 2912.5 / 2912.5 1665 / 1665 1565 / 1565 Output Total 2200 / 2200 5 / 5 Balance 2912.5 / 2912.5 -535 / -535 1560 / 1560 Intake: IV 1312.5 / 1312.5 1665 / 1665 1565 / 1565 NS Inj 1,000 ML @ 100 mls/hr IV 1000 / 1000 1000 / 1000 1000 / 1000 .CONT .Q10H MARCOS Rx#:[id number] Zosyn 3.375 GM Premix 50 ML @ 50 / 50 150 / 150 50 / 50 100 mls/hr IV.SIG Q6H MARCOS Rx#: [id number] Vancomycin Inj 1,250 MG In NS 262.5 / 262.5 Inj 250 ML @ 250 mls/hr IV.SIG Q12H MARCOS Rx#:[id number] Vancomycin Inj 1,500 MG In NS 515 / 515 515 / 515 Inj 500 ML @ 250 mls/hr IV.SIG Q12H MARCOS Rx#:[id number] Oral 1600 / 1600 Output: Urine 2200 / 2200 3 / 3 Stool 2 / 2 Other: # Voids 3 1 1 Date of Last Bowel Movement 06/05/18 06/05/18 06/06/18 # Bowel Movements 2 Narrative: GENERAL: No acute distress. SKIN: Focused skin assessment warm and dry. HEENT: PERRLA, EOMI. No scleral icterus or conjunctival pallor. No lid lag or facial droop. CARDIOVASCULAR: Regular rate and rhythm. RESPIRATORY: No obvious rhonchi or wheezing. Clear to auscultation. Breath sounds equal bilaterally. GASTROINTESTINAL: Abdomen soft, non-tender, nondistended. BS normal. MUSCULOSKELETAL: Bilateral lower extremities w/ multiple ulcers, open lesions, erythema improved. Nontender. Edema noted. NEUROLOGICAL: Awake, alert and oriented x4. No focal neurologic deficits. Moving both upper and lower extremities spontaneously. PSYCHIATRIC: Appropriate mood and affect. Insight and judgment normal. Results - Labs CBC & Chem 7: 06/04/18 07:45 06/06/18 08:51 Laboratory Results - last 24 hr 06/06/18 08:51 Creatinine 0.77 Estimated GFR 76 L Microbiology 06/01/18 20:15 Blood - Peripheral Aerobic Blood Culture - Final No growth in 5 days 06/01/18 20:15 Blood - Peripheral Anaerobic Blood Culture - Final Staphylococcus hominis-hominis Assessment and Plan - Assessment (1) Cellulitis Code(s): L03.90 - Cellulitis, unspecified Status: Acute - Plan Bilateral leg cellulitis -continue with IV Vanco and Zosyn- will follow the cultures. ID is following. -wound care consult appreciated; recommended Acetic acid soaked gauze/ rolled gauze/ to be discontinued after 7 days (started on 06/02). -needs a f/u with wound care clinic upon discharge. Diarrhea -seems resolved. HTN Mild. -clonidine or Vasotec as needed. DVT Prophylaxis: Lovenox Discharge Planning: Needs ID clearance. Pt is homeless. Will need case management assistance. (1) Cellulitis Qualifiers: Site of cellulitis: extremity Site of cellulitis of extremity: lower extremity Laterality: unspecified laterality Qualified Code(s): L03.119 - Cellulitis of unspecified part of limb
[2018-06-07] MEDS: Piperacil/Tazo 3.375 GM Premix 50 ML IV.SIG SCH ×4 (05:54→23:55)
[2018-06-07] MEDS ORDERED: Pharmacy Ordered Lab Info OTHER ONE (07:45)
[2018-06-07 08:12] LABS: Glomerular Filtration Rate Greater Than 89 mL/min (>89)
[2018-06-07] MEDS: ACETIC ACID 0.25% IRRIGATION SCH ×3 (09:06→17:46)
[2018-06-07] MEDS: Vancomycin Inj 1,500 MG in Sodium Chlor 0.9% Inj 500 ML IV.SIG SCH ×2 (09:07→20:45)
[2018-06-07] MEDS: Senna/Docusate Sodium 8.6/50 MG Tablet PO SCH ×2 (09:07→20:48)
[2018-06-07] MEDS: Enoxaparin Inj 40 MG/0.4 ML Syringe SQ SCH (09:07)
[2018-06-07] MEDS: Sodium Chloride 0.9% 2 ML Flush BID IV.FLUSH SCH ×2 (09:08→20:48)
[2018-06-07] MEDS: Sod Chloride 0.9% Inj 1,000 ML IV.CONT SCH ×2 (09:08→16:47)
--- NOTE | 2018-06-07 15:57 | P.PNIM ---
Subjective Interval history: Patient has no specific complaints, she is here for lower extremity wounds that are recurrent and chronically reopen causing infection. She currently has a dry dressing, dry wounds, and we discussed the addition of mupirocin ointment to moisten her ulcerations. Physical Exam Vital signs: Vital Signs 06/06/18 16:00 06/06/18 20:00 06/07/18 00:00 Temperature 98.0 F 98.3 F 97.9 F Pulse Rate 78 87 84 Respiratory Rate 20 18 18 Blood Pressure 143/67 H 129/68 120/59 L Pulse Oximetry 96 98 94 L 06/07/18 08:00 06/07/18 12:00 Temperature 98.0 F 97.4 F L Pulse Rate 78 79 Respiratory Rate 17 18 Blood Pressure 144/70 H 131/71 Pulse Oximetry 98 97 Intake & Output 06/06/18 06/07/18 06/07/18 18:59 06:59 18:59 Intake Total 2315 / 2315 1565 / 1565 1095 / 1095 Output Total 6 / 6 Balance 2309 / 2309 1565 / 1565 1095 / 1095 Weight 77.14 kg Intake: IV 1615 / 1615 1565 / 1565 615 / 615 NS Inj 1,000 ML @ 100 mls/hr IV 1000 / 1000 1000 / 1000 .CONT .Q10H MARCOS Rx#:[id number] Zosyn 3.375 GM Premix 50 ML @ 100 / 100 50 / 50 100 / 100 100 mls/hr IV.SIG Q6H MARCOS Rx#: [id number] Vancomycin Inj 1,500 MG In NS 515 / 515 515 / 515 515 / 515 Inj 500 ML @ 250 mls/hr IV.SIG Q12H MARCOS Rx#:[id number] Oral 700 / 700 480 / 480 Output: Urine 4 / 4 Stool 2 / 2 Other: # Voids 1 2 1 Date of Last Bowel Movement 06/06/18 06/07/18 06/06/18 Narrative: GENERAL: AAOx3, no acute distress SKIN: Multiple dry shallow ulcerations of anterior surface of right lower extremity, left lower extremity similar, but with pattern of bug bites proximally HEAD: Atruamtic, normocephalic. EYES: No scleral icterus. No injection or drainage. ENT: Moist mucous membranes, patent nares, no erythema of oropharynx. NECK: Supple, trachea midline. No JVD or lymphadenopathy. Normal thyroid. CARDIOVASCULAR: Regular rate and rhythm. No murmurs, gallops, or rubs. RESPIRATORY: Breath sounds clear equal bilaterally. No crackles or wheezes. No accessory muscle use. GASTROINTESTINAL: Abdomen soft, non-tender, nondistended, normal active bowel sounds MUSCULOSKELETAL: No cyanosis, or edema. NEURO: CN II-XII grossly intact, no focal deficits, no slurring of speech Results - Labs CBC & Chem 7: 06/04/18 07:45 06/07/18 06:14 Laboratory Results - last 24 hr 06/07/18 06/07/18 06:14 07:45 Creatinine 0.65 Estimated GFR Greater than 89 Vancomycin Trough 21.7 H Microbiology 06/06/18 08:46 Blood - Peripheral Aerobic Blood Culture - Preliminary No growth in 1 day 06/06/18 08:46 Blood - Peripheral Anaerobic Blood Culture - Preliminary No growth in 1 day 06/06/18 08:51 Blood - Peripheral Aerobic Blood Culture - Preliminary No growth in 1 day 06/06/18 08:51 Blood - Peripheral Anaerobic Blood Culture - Preliminary No growth in 1 day Assessment and Plan - Assessment (1) Cellulitis Code(s): L03.90 - Cellulitis, unspecified Status: Acute - Plan Bilateral leg cellulitis Large open recurrent ulcerations that are currently dry and stuck to dry dressing Bactroban added to current recommendation of acetic soaked gauze wet-to-dry Responding well to IV vancomycin and Zosyn Following cultures Appreciate infectious disease consult Appreciate wound care consult Hypertension Continue Vasotec DVT Prophylaxis Lovenox Discharge planning Needs ID clearance. Pt is homeless. (1) Cellulitis Qualifiers: Site of cellulitis: extremity Site of cellulitis of extremity: lower extremity Laterality: unspecified laterality Qualified Code(s): L03.119 - Cellulitis of unspecified part of limb
--- NOTE | 2018-06-07 16:20 | P.PNID ---
Subjective Remarks: delaeyed entry Pt seen arounf 11 am BLE wounds healing nicely no new c/o repeat bl cx so far negative previous clx with Staph hominis 2/2, similar Antibiotics: zosyn vanco Allergies/Adverse Reactions: Allergies No Known Allergies Allergy (Verified 06/01/18 18:42) Objective Vital Signs 06/06/18 20:00 06/07/18 00:00 06/07/18 08:00 Temperature 98.3 F 97.9 F 98.0 F Pulse Rate 87 84 78 Respiratory Rate 18 18 17 Blood Pressure 129/68 120/59 L 144/70 H Pulse Oximetry 98 94 L 98 06/07/18 12:00 Temperature 97.4 F L Pulse Rate 79 Respiratory Rate 18 Blood Pressure 131/71 Pulse Oximetry 97 Intake & Output 06/06/18 06/07/18 06/07/18 18:59 06:59 18:59 Intake Total 2315 / 2315 1565 / 1565 1095 / 1095 Output Total 6 / 6 Balance 2309 / 2309 1565 / 1565 1095 / 1095 Weight 77.14 kg Intake: IV 1615 / 1615 1565 / 1565 615 / 615 NS Inj 1,000 ML @ 100 mls/hr IV 1000 / 1000 1000 / 1000 .CONT .Q10H MARCOS Rx#:[id number] Zosyn 3.375 GM Premix 50 ML @ 100 / 100 50 / 50 100 / 100 100 mls/hr IV.SIG Q6H MARCOS Rx#: [id number] Vancomycin Inj 1,500 MG In NS 515 / 515 515 / 515 515 / 515 Inj 500 ML @ 250 mls/hr IV.SIG Q12H MARCOS Rx#:[id number] Oral 700 / 700 480 / 480 Output: Urine 4 / 4 Stool 2 / 2 Other: # Voids 1 2 1 Date of Last Bowel Movement 06/06/18 06/07/18 06/06/18 06/06/18 08:46 Blood - Peripheral Aerobic Blood Culture - Preliminary No growth in 1 day 06/06/18 08:46 Blood - Peripheral Anaerobic Blood Culture - Preliminary No growth in 1 day 06/06/18 08:51 Blood - Peripheral Aerobic Blood Culture - Preliminary No growth in 1 day 06/06/18 08:51 Blood - Peripheral Anaerobic Blood Culture - Preliminary No growth in 1 day 06/01/18 20:15 Blood - Peripheral Aerobic Blood Culture - Final No growth in 5 days 06/01/18 20:15 Blood - Peripheral Anaerobic Blood Culture - Final Staphylococcus hominis-hominis 06/01/18 20:10 Blood - Peripheral Aerobic Blood Culture - Final Staphylococcus hominis-hominis 06/01/18 20:10 Blood - Peripheral Anaerobic Blood Culture - Final Lab - Chemistry Results 06/06/18 06/07/18 08:51 06:14 Creatinine 0.77 0.65 Estimated GFR 76 L Greater than 89 Imaging: ITS Impressions Tibia/Fibula X-Ray 06/01/18 18:56 CONCLUSION: No acute bony findings Physical Exam: GENERAL: NAD SKIN: Warm and dry. EYES: Pupils equal and round. No scleral icterus. No injection or drainage. ENT: No nasal bleeding or discharge. Mucous membranes pink and moist. very poor dentition CARDIOVASCULAR: Regular rate and rhythm. No murmurs RESPIRATORY: No accessory muscle use. Clear to auscultation. Breath sounds equal bilaterally. GASTROINTESTINAL: Abdomen soft, non-tender, nondistended. Hepatic and splenic margins not palpable. MUSCULOSKELETAL: Extremities without clubbing, cyanosis, near complete resolutio of edema, resolved erythema Lesions are healing very ncly No odor NEUROLOGICAL: Awake and alert. Non focal PSYCHIATRIC: calm, cooperative Assessment and Plan - Plan BLE edema Cellulitis BLE, more prominent on the RLE Infected lesions, likley infected insect bites, mixed - MRSA, GAS and GNBs, including anaerobs (odor) abx adsociated diarrhea: resolved dc zosyn, vancomyin switch to oral abx: Augmentin 875 mg BID + doxycyclin 100 mg BID for 5 more days pt needs to stay away from sun incase of using doxycyline (increased sun sesitivity) Alternative to doxycyline will be Bactrim DS 2 pills BID x 5 days OK to dc from ID standpoint
[2018-06-07] MEDS: Vancomycin Inj 1,250 MG in Sodium Chlor 0.9% Inj 250 ML IV.SIG SCH (23:26)
[2018-06-08] MEDS: Piperacil/Tazo 3.375 GM Premix 50 ML IV.SIG SCH ×2 (05:01→13:03)
[2018-06-08] MEDS: Sod Chloride 0.9% Inj 1,000 ML IV.CONT SCH ×3 (05:08→21:25)
[2018-06-08] MEDS ORDERED: Pharmacy Ordered Lab Info OTHER ONE (07:45)
[2018-06-08 08:14] LABS: Vancomycin,Trough 23.7 mcg/mL (5.0-10.0)
[2018-06-08] MEDS: Enoxaparin Inj 40 MG/0.4 ML Syringe SQ SCH (08:49)
[2018-06-08] MEDS: ACETIC ACID 0.25% IRRIGATION SCH ×3 (08:49→17:25)
[2018-06-08] MEDS: Senna/Docusate Sodium 8.6/50 MG Tablet PO SCH ×2 (08:49→21:25)
[2018-06-08] MEDS: Sodium Chloride 0.9% 2 ML Flush BID IV.FLUSH SCH ×2 (08:49→21:25)
[2018-06-08] MEDS: Vancomycin Inj 1,250 MG in Sodium Chlor 0.9% Inj 250 ML IV.SIG SCH (08:50)
--- NOTE | 2018-06-08 15:52 | P.DS ---
Date of admission: 06/05/18 16:10 Primary care physician: No Primary Care Physician Brief History from admission: Is a 63-year-old female with a PMH of Recurrent Lower Extremity Ulcers who presented to ER with complaints of worsening lower extremity wounds bilaterally. Previous admit 04/27/2018 for similar complaints, s/p IV Abx and d/c 'd on Clinda PO, reports compliance w/ antibiotics. States lesions had improved while on antibiotics, however now worse over the last 1wk. Denies fever or chills. On arrival, BP 136/64, HR 117, O2 sat 100% on RA, Afebrile. WBC 14.4. INR 1.0. Chemistry essentially unremarkable. Tib-fib X-ray bilaterally negative for acute findings. S/p Clinda IV in ER. DS: Diagnosis - Discharge Diagnosis (1) Cellulitis Status: Acute DS: Medications - Discharge Medications Prescriptions: amoxicillin-pot clavulanate [Augmentin] 1 tab PO BID 7 Days #14 tab doxycycline hyclate 100 mg PO BID 7 Days #14 tab mupirocin 1 applicatio TOPICAL DAILY 14 Days g DS: Summary Hospital Course: 63-year-old female admitted for failure of outpatient treatment for her recurrent lower extremity ulcers. She was discharged last month on p.o. clindamycin following a course of IV antibiotics. Cultures obtained in the ER grew out staph hominis, staph aureus, group a beta strep. Empiric treatment started in the ER was with Zosyn and vancomycin. Patient was evaluated by infectious disease who follow cultures, after they returned she was determined to be a candidate for oral therapy with Augmentin and doxycycline. She has been mostly homeless and exhibits wounds on her legs are consistent with infected bug bites. Her best environment locally is when she is able to afford a motel room. She is medically stable for discharge and will need to continue oral antibiotics for the next week as well as topical antibiotics with daily dressing changes. Given the open nature of her wounds she would not be medically safe to go home unless she has a clean environment in which she can address her wounds, clean them, change the dressings. For this reason I am recommending that she return to her previous living environment which is a motel. She may be discharged when a motel room reservation is confirmed. Plan B would be to board a [employer] bus for [place] tomorrow if she is unable to secure a motel room tonight. - Time Spent with Patient Total time spent providing and/or coordinating discharge services: Less than 30 minutes - Quality: VTE Deep Vein Thrombosis/Pulmonary Embolism Present on Admission: No Exam Vital signs: Vital Signs 06/07/18 16:00 06/07/18 19:52 06/08/18 00:00 Temperature 97.4 F L 97.9 F 98.4 F Pulse Rate 79 90 81 Respiratory Rate 18 18 16 Blood Pressure 131/71 151/81 H 153/71 H Pulse Oximetry 97 97 94 L 06/08/18 04:00 06/08/18 05:00 06/08/18 08:00 Temperature 98.1 F 97.9 F 97.8 F Pulse Rate 82 77 74 Respiratory Rate 18 18 20 Blood Pressure 136/68 137/80 Pulse Oximetry 96 97 96 06/08/18 12:00 Temperature 97.4 F L Pulse Rate 87 Respiratory Rate 20 Blood Pressure 145/76 H Pulse Oximetry 98 Intake & Output 06/07/18 06/08/18 06/08/18 18:59 06:59 18:59 Intake Total 2145 / 2145 1100 / 1100 1125 / 1125 Balance 2145 / 2145 1100 / 1100 1125 / 1125 Weight 82.7 kg Intake: IV 1665 / 1665 1100 / 1100 565 / 565 NS Inj 1,000 ML @ 100 mls/hr IV 1000 / 1000 1000 / 1000 .CONT .Q10H MARCOS Rx#:[id number] Zosyn 3.375 GM Premix 50 ML @ 150 / 150 100 / 100 50 / 50 100 mls/hr IV.SIG Q6H MARCOS Rx#: [id number] Vancomycin Inj 1,500 MG In NS 515 / 515 515 / 515 Inj 500 ML @ 250 mls/hr IV.SIG Q12H MARCOS Rx#:[id number] Oral 480 / 480 560 / 560 Other: # Voids 1 3 2 Date of Last Bowel Movement 06/06/18 06/08/18 06/07/18 Results Procedures completed during hospitalization: none Labs on day of discharge: Labs from last 24 hours 06/08/18 06/08/18 05:54 05:54 BUN 12 Creatinine 0.72 Estimated GFR 82 L Vancomycin Trough 23.7 H Preliminary micro results at discharge 06/06/18 08:46 Aerobic Blood Culture - Preliminary Blood - Peripheral No growth in 2 days Anaerobic Blood Culture - Preliminary No growth in 2 days 06/06/18 08:51 Aerobic Blood Culture - Preliminary Blood - Peripheral No growth in 2 days Anaerobic Blood Culture - Preliminary No growth in 2 days - Impressions ITS Impressions Tibia/Fibula X-Ray 06/01/18 18:56 CONCLUSION: No acute bony findings Discharge Plan - Discharge Disposition Patient Disposition: 01 Discharge Home - Discharge Condition Condition: Stable - Discharge Order Discharge Orders: Discharge Order (Routine); Ordered 06/08/18 Ordered By: Tank Robins - Discharge Details Discharge Comment: December discharge to local [facility] when reservation confirmed - Physicians Team Primary Care Provider: Primary Care Maggi Zepeda Attending Provider: Tank Robins Other Providers: Jenny Sim MD
[2018-06-08] MEDS: Amoxicillin/Clavulanate 875/125 MG Tablet PO SCH (21:25)
[2018-06-09] MEDS: Amoxicillin/Clavulanate 875/125 MG Tablet PO SCH (08:41)
[2018-06-09] MEDS: Sodium Chloride 0.9% 2 ML Flush BID IV.FLUSH SCH (08:42)
[2018-06-09] MEDS: Sod Chloride 0.9% Inj 1,000 ML IV.CONT SCH (08:42)
[2018-06-09] MEDS: Enoxaparin Inj 40 MG/0.4 ML Syringe SQ SCH (08:42)
[2018-06-09] MEDS: Senna/Docusate Sodium 8.6/50 MG Tablet PO SCH (08:42)
[2018-06-09 09:15] VITALS: BP 142/70; PULSE 91; RESP 16; TEMP 97.3; O2SAT 96
== END 2018-06-09 10:56 | disposition home or self-care (01) ==
LOC: NEPE 13:56 → NEDA 13:56 → NEPGCP 21:00 → N05 06-06 03:45
PROVIDERS: ADMIT Family Medicine; ATTEND Family Medicine